=== PATIENT | female | born 1995 | race Caucasian/White ===

== ENCOUNTER 2018-07-10 10:42 | Outpatient (CLI) | payer MEDICAID, SELFPAY ==
[2018-07-10 13:09] LABS: Anion Gap 9.6 mmol/L (3-11); BUN 8 mg/dL (7-18); CO2 26.4 mmol/L (21.0-32.0); CREATININE 0.63 mg/dL (0.55-1.02); Calcium 8.6 mg/dL (8.5-10.1); Chloride 104 mmol/L (98-107); Glucose 81 mg/dL (70-100); Magnesium 1.7 mg/dL (1.8-2.4); Potassium 4.3 mmol/L (3.5-5.1); Sodium 140 mmol/L (136-145); TSH (W/Ref FT4) 1.41 uIU/mL (0.358-3.74)
== END 2018-07-10 11:02 ==
PROVIDERS: PCP Nurse Practitioner Gerontology; Visit Provider Nurse Practitioner Family
DX: R00.2 Palpitations (principal)
CPT/HCPCS: 36415; 80048; 83735; 84443

== ENCOUNTER 2018-07-14 02:50 | Outpatient (CLI) | payer MEDICAID, SELFPAY | END 2018-07-14 03:10 | PROVIDERS: PCP Nurse Practitioner Family; Visit Provider Nurse Practitioner Family | DX: R00.2 Palpitations (principal); I49.8 Other specified cardiac arrhythmias | CPT/HCPCS: 93225 ==

== ENCOUNTER 2018-07-17 08:07 | Outpatient (REF) | payer MEDICAID, SELFPAY ==
--- NOTE | 2018-07-17 15:25 | W.HOLTRPT ---
Holter Monitor Report Holter Monitor Note: Holter monitor report Date of service: July 14, 2018 Date of analysis: July 17, 2018 Referred by: Chelsea Stokes NP Indication: Palpitations Findings: 1. Baseline sinus rhythm, 51-129/min, average 76/min. Significant sinus arrhythmia. 2. Rare PAC, 9/2 days, no SVT, no AF. 3. Rare PVC, 28/2 days, no VT. 4. No significant pauses. 5. Symptoms: Flutter times 5 minutes, sinus rhythm, 95/min, 1 PVC. Flutter off and on, sinus rhythm, 66/min, no arrhythmia.
== END 2018-07-17 08:27 ==
LOC: RT 08:07
PROVIDERS: PCP Nurse Practitioner Family; Visit Provider Nurse Practitioner Family
DX: R00.2 Palpitations (principal); I49.1 Atrial premature depolarization; I49.3 Ventricular premature depolarization
CPT/HCPCS: 93226

== ENCOUNTER 2018-09-22 08:44 | Outpatient (CLI) | payer MEDICAID, SELFPAY ==
[2018-09-22 11:41] LABS: Magnesium 1.8 mg/dL (1.8-2.4)
== END 2018-09-22 09:04 ==
PROVIDERS: PCP Nurse Practitioner Family; Visit Provider Nurse Practitioner Family
DX: R00.2 Palpitations (principal); E83.42 Hypomagnesemia
CPT/HCPCS: 36415; 83735

== ENCOUNTER 2019-07-29 20:24 | Emergency (ER) | payer MEDICAID, SELFPAY ==
[2019-07-29 20:26] VITALS: BP 139/82; PULSE 122; RESP 16; TEMP 37.1; O2SAT 99
--- NOTE | 2019-07-29 20:27 | W.ED.GENAD ---
Discharge Plan Disposition Patient Disposition: HOME Condition: Good Discharge Details Chief Complaint: Sorethroat Clinical Impression: Viral syndrome Primary Care Provider: Chelsea Stokes ED Provider: Preet Aguilar Meds and New Rx's Prescriptions: Continued NuvaRing 0.12-0.015 mg/24 hr ring 1 vag ring VG Q4W RF: 0 lorazepam 0.5 mg tablet 0.5 mg PO DAILY MDD .5mg PRN (Reason: anxiety) Qty: 10 RF: 0 sertraline 100 mg tablet 100 mg PO DAILY Qty: 90 RF: 3 naproxen 500 mg tablet 500 mg PO BID PRN (Reason: pain) Qty: 20 RF: 0 Discharge Instructions Instructions: Viral Syndrome (ED) Additional Instructions: Suspect this is all just a viral illness. Strep culture has been sent. Monospot is negative. Recommend rest, hydration, acetaminophen or ibuprofen as needed for discomfort. Follow-up with primary care next week if not doing any better. Return to ED for severe headache, mental status changes, difficulty breathing, inability to swallow, chest pain, vomiting, other concerns or problems. Referrals: Chelsea Stokes, OVERHEAD DISTRIBUTION ENGINEER [Primary Care Provider] - Medical Decision Making Patient presenting with viral-like symptoms. No fever that she is aware of. Looks well here but does have tachycardia. Denies nausea vomiting and reports eating and drinking normally. Afebrile here. Lungs are clear. Rapid strep is negative. Cannot really explain the tachycardia so we will place IV and give a liter of fluids. Will check CBC, BMP and Monospot. Suspect this is all just a viral. I do not suspect meningitis and I do not think she needs imaging or LP. Patient laboratory studies are fine. WBC is normal with no atypical lymphs. Monospot negative. Chemistries normal. Patient's heart rate down to 100 with just over half a liter in. Will finish the liter and and plan discharge. Patient to rest, stay hydrated, continue acetaminophen or ibuprofen as needed for discomfort. Follow-up with primary care next week if not doing better. Return to ED for severe headache, mental status changes, lethargy, difficulty breathing, inability to swallow, vomiting, other concerns or problems. Medical Records Medical records reviewed: Yes I reviewed the patient's medical records. HPI General Mode of arrival: ambulatory. Date/Time Provider Initiated Documentation: 07/29/19 20:25. Limitations to Documentation: no limitations. Information obtained by: patient, RN notes reviewed and old records reviewed. HPI Narrative: Patient presents to ED with complaint of sore throat, fatigue, body aches, intermittent headache. Fatigue started about a week ago. Body aches and headaches over the weekend. Headache is mostly right-sided. Relieved by Tylenol but comes back. Has history of headaches but not for some time and typically does not last days. Developed sore throat in the last 24 to 36 hours. Denies any fever that she is aware of. Denies rash. Denies cough or shortness of breath. Occasional nausea but no vomiting or diarrhea. No chest pain or abdominal pain. Was seen by PCP this morning but that note reflects complaint of headache only. She was prescribed naproxen. Related Data Home Medications Medication Instructions Recorded Confirmed etonogestrel-ethinyl estradiol 1 vag ring VG Q4W 07/21/19 07/29/19 0.12 mg -0.015 mg/24 hr vaginal ring lorazepam 0.5 mg tablet 0.5 mg PO DAILY PRN #10 tab MDD 07/21/19 07/29/19 .5mg naproxen 500 mg tablet 500 mg PO BID PRN #20 tab 07/29/19 07/29/19 sertraline 100 mg tablet 100 mg PO DAILY #90 tab 07/29/19 07/29/19 Previous Rx's Medication Instructions Recorded lorazepam 0.5 mg tablet 0.5 mg PO DAILY PRN #10 tab MDD 07/21/19 .5mg naproxen 500 mg tablet 500 mg PO BID PRN #20 tab 07/29/19 sertraline 100 mg tablet 100 mg PO DAILY #90 tab 07/29/19 Allergies Allergy/AdvReac Type Severity Reaction Status Date / Time Penicillins Allergy Verified 07/29/19 20:31 Sulfa (Sulfonamide Allergy hives Verified 07/29/19 20:31 Antibiotics) amoxicillin AdvReac Intermediate welts on Verified 07/29/19 20:31 legs Review of Systems Review of Systems Narrative: As documented in HPI otherwise negative as below. Const: no fever, chills, weakness Resp: no cough, SOB, pleuritic pain CV: no CP, diaphoresis, edema, syncope GI: nausea; no abdominal pain, vomiting, diarrhea Neuro: headache; no numbness, focal weakness, confusion PFSH Medical History Generalized anxiety disorder (Chronic) Migraine headache with aura (Chronic) Family History Mother Mental disorder depression -taking Wellbutrin Asthma Father No problems noted. Brother Essential hypertension Grandfather Heart disease Myocardial infarction Stroke COPD (chronic obstructive pulmonary disease) Grandfather Stroke Grandmother Essential hypertension Grandmother No problems noted. Social History Smoking/Tobacco Use Status: Never Alcohol Intake: never Drug use: Never Substance use type: does not use Do you feel safe in your relationship?: Yes Exam Narrative Exam Narrative: Vitals: Afebrile. Tachycardic but otherwise vital signs normal with normal room air pulse oximetry. Const: WDWN female in NAD. HEENT: NC/AT. Normal facial exam. TMs clear. OP with tonsil erythema but otherwise normal. Eyes: Normal conjunctiva and sclera. Neck: Supple. Trachea midline. No adenopathy. No meningeal signs. Lungs: Normal respiratory effort. Lungs are clear. Cor: RRR without murmur/gallop. Tachy. Good radial pulses. GI: Soft. NT/ND. No guarding or rebound. No HSM. Neuro: A+O x 3. Cranial nerves II through XII intact. Speech, mental status, strength, sensation, gait all normal. Ext: No C/C/E. Skin: Warm and dry without rash.
[2019-07-29] MEDS: Lactated Ringers 1,000 ML 1000 ML IV (21:15)
[2019-07-29 21:18] LABS: Absolute Basophil Count 0.02 k/cumm (0.0-0.2); Absolute Eosinophil Count 0.04 k/cumm (0.0-0.7); Absolute Lymphocyte Count 0.81 k/cumm (1.2-3.4); Absolute Neutrophil Count 3.39 k/cumm (1.2-6.7); Basophils % 0.4; Eosinophils % 0.9; HCT 41.6 % (36.0-46.0); HGB 14.2 g/dL (12.0-15.5); Lymphocytes % 17.4; Mean Corp. HGB Concentration 34.1 g/dL (32.0-36.0); Mean Corpuscular Hemoglobin 29.3 pg (27.0-33.0); Mean Corpuscular Volume 85.8 fL (80-95); Mean Platelet Volume 11.1 fL (8.0-11.0); Monocytes % 8.6; Neutrophils % 72.7; Platelet Count 150 x1000/uL (130-400); RBC 4.85 m/cumm (4.00-5.20); RBC Distribution Width 12.5 % (11.7-14.6); White Blood Cell Count 4.66 k/cumm (4.4-10.8)
[2019-07-29 21:25] LABS: Anion Gap 9.7 mmol/L (3-11); BUN 8 mg/dL (7-18); CO2 28.3 mmol/L (21.0-32.0); CREATININE 0.77 mg/dL (0.55-1.02); Calcium 9.2 mg/dL (8.5-10.1); Chloride 100 mmol/L (98-107); Glucose 130 mg/dL (70-100); Potassium 3.7 mmol/L (3.5-5.1); Sodium 138 mmol/L (136-145)
[2019-07-29 21:36] LABS: Mono Screening Negative (Negative)
[2019-07-29 22:05] VITALS: BP 110/62; PULSE 90; RESP 16; TEMP 36.6; O2SAT 99
== END 2019-07-29 22:08 | disposition home or self-care (01) ==
PROVIDERS: Emergency Provider Emergency Medicine; PCP Nurse Practitioner Family
DX: B34.9 Viral infection, unspecified (principal)
CPT/HCPCS: 36415; 80048; 87880; 96360; 99283; 85025; 86308; 87081

== ENCOUNTER 2020-06-27 21:47 | Outpatient (REF) | payer MEDICAID, SELFPAY ==
[2020-06-27 21:33] LABS: FREE T4 1.01 ng/dL (0.76-1.46); TSH 1.33 uIU/mL (0.36-3.74)
== END 2020-06-27 22:07 ==
LOC: LBN 21:47
PROVIDERS: PCP Nurse Practitioner Family; Visit Provider Nurse Practitioner Family
DX: F32.9 Major depressive disorder, single episode, unspecified (principal)
CPT/HCPCS: 84439; 84443

== ENCOUNTER 2021-07-07 13:43 | Outpatient (CLI) | payer MEDICAID, SELFPAY ==
[2021-07-07 13:59] LABS: Abs Immature Grans 0.01 10^3/uL (0.0-0.06); Absolute Basophil Count 0.04 10^3/uL (0.0-0.2); Absolute Eosinophil Count 0.08 10^3/uL (0.0-0.7); Absolute Lymphocyte Count 1.78 10^3/uL (1.2-3.4); Absolute Monocyte Count 0.39 10^3/uL (0.1-0.8); Absolute Neutrophil Count 4.84 10^3/uL (1.2-6.7); Basophils % 0.6; Eosinophils % 1.1; HCT 40.8 % (36.0-46.0); HGB 13.8 g/dL (11.2-15.7); Immature Grans % 0.1; Lymphocytes % 24.9; MCH 29.5 pg (27.0-33.0); MCHC 33.8 % (32.0-36.0); MCV 87.2 fL (80-95); MPV 11.3 fL (8.0-11.0); Monocytes % 5.5; Neutrophils % 67.8; Nucleated RBC 0 %; Platelet Count 193 10^3/uL (130-400); RBC 4.68 10^6/uL (3.93-5.22); RDW 11.9 % (11.7-14.6); RDW-SD 37.7 fL; WBC 7.14 10^3/uL (4.4-10.8)
[2021-07-07 15:25] LABS: ALT 25 U/L (14-59); AST 12 U/L (15-37); Albumin 4.4 g/dL (3.4-5.0); Alkaline Phosphatase 73 U/L (46-116); Anion Gap 6.6 mmol/L (3-11); BUN 11 mg/dL (7-18); Bilirubin, Total 1.7 mg/dL (0.2-1.0); CO2 30.4 mmol/L (21.0-32.0); CREATININE 0.8 mg/dL (0.55-1.02); Calcium 9.1 mg/dL (8.5-10.1); Chloride 105 mmol/L (98-107); Glucose 82 mg/dL (74-106); Sodium 142 mmol/L (136-145); T4 7.8 ug/mL (4.7-13.3); TSH 0.99 uIU/mL (0.36-3.74); Total Protein 7.7 g/dL (6.4-8.2); Vitamin B12 364 pg/mL (193-986)
== END 2021-07-07 13:44 | disposition home or self-care (01) ==
LOC: LBO 13:44
PROVIDERS: PCP Nurse Practitioner Family; Visit Provider Nurse Practitioner Family
DX: G43.109 Migraine with aura, not intractable, without status migrainosus (principal)
CPT/HCPCS: 36415; 80053; 82607; 84436; 84443; 85025

== ENCOUNTER 2023-03-08 14:45 | Outpatient (REF) | payer MEDICAID, SELFPAY ==
[2023-03-08 15:32] LABS: HCT 39.1 % (36.0-46.0); HGB 13.3 g/dL (11.2-15.7); MCH 29.3 pg (27.0-33.0); MCV 86 fL (80-95); Platelet Count 220 10^3/uL (130-400); RBC 4.54 10^6/uL (3.93-5.22); RDW 11.9 % (11.7-14.6); RDW-SD 37.8 fL; WBC 7.76 10^3/uL (4.4-10.8)
[2023-03-08 16:38] LABS: TSH (W/Ref FT4) 1.19 uIU/mL (0.36-3.74)
[2023-03-08 16:52] LABS: Vitamin D 25 Total 16.7 ng/mL (30-100)
== END 2023-03-08 14:46 | disposition home or self-care (01) ==
LOC: NCHCN 14:45
PROVIDERS: PCP Nurse Practitioner Family; Visit Provider Nurse Practitioner Family
DX: R63.5 Abnormal weight gain (principal); R53.83 Other fatigue; F41.8 Other specified anxiety disorders; E55.9 Vitamin D deficiency, unspecified
CPT/HCPCS: 82306; 85027; 84443

== ENCOUNTER 2023-10-27 11:04 | Emergency (ER) | payer MEDICAID, SELFPAY ==
[2023-10-27] VITALS (23 sets, daily range): BP systolic 109–146; BP diastolic 62–98; PULSE 83–105; RESP 13–16; TEMP 36.9; O2SAT 92–100
--- NOTE | 2023-10-27 11:00 | DI.US_ITS ---
Exam(s) US OB TRANSVAGINAL EXAM: US OB TRANSVAGINAL INDICATION: Vaginal bleeding . COMPARISON: US POCUS EXAM from 10/27/2023 TECHNIQUE: Transvaginal pelvic ultrasound performed FINDINGS: Uterus: Uterus size is normal, measuring 8.3 cm length by 3.8 cm AP x 4.9 cm wide. There are no uterine fibr oids evident. There is no evidence of intrauterine gestational sac. The endometrial thickness is 11 mm. There is no fluid in the endometrial canal. No abnormal findings in the lower uterine segment. There is trac e fluid in the endocervical canal. Small amount of fluid is noted in the cul-de-sac. Ovaries: Right ovary measures 2.7 x 2.5 x 1.6 cm and left ovary measures 4.1 x 2.4 x 1.6 cm. Both ov radha appear age-appropriate/unremarkable. Vascular flow was demonstrated within both ovaries. Ther e no extraovarian adnexal masses evident on these images. IMPRESSION: No evidence of intrauterine gestation. Endometrium appears age-appropriate. There is trace fluid in the endocervical canal. Normal appearing ovaries. No obvious extraovarian adnexal masses. There is a tiny amount of free fluid in the cul-de-sac.
--- NOTE | 2023-10-27 11:10 | W.ED.GENAD ---
HPI General JENY: 4 Date/Time Provider Initiated Documentation: 10/27/23 11:07. HPI Narrative: MDM This is a mildly tachycardic but normotensive and normothermic 28-year-old at 6 and half weeks with vaginal bleeding and cramping concerning for the possibility of ectopic for which patient will undergo formal radiology ultrasound. She had no definitive intrauterine on limited bedside transabdominal pelvic ultrasound. She had a negative abdominal FAST exam reassuring against ruptured ectopic. Will send quantitative hCG along with type and screen to assess for need for RhoGAM plus CBC and basic labs. No history of falling to suggest benefit from kleihauer betke test. No pain or proportion to suggest necrotizing soft tissue infection. Soft nontender abdomen so I doubt appendicitis diverticulitis. No dysuria no frequency so doubt UTI. No chest pain to doubt PE. 12:20 PM CBC lacks anemia thrombocytopenia and leukocytosis. Comprehensive metabolic panel showing very mild hyperbilirubinemia improved compared to prior dated 3 years ago. No MARCY. No LFT abnormalities. Quantitative hCG at 235. 1:34 PM Patient has blood type O+ so no indication for RhoGAM as patient is not Rh-. Ultrasound is here to perform transvaginal ultrasound. 3:26 PM Transvaginal ultrasound on preliminary report shows no definitive intrauterine gestational sac. Will page OB in the setting of of unknown origin. 3:30 PM I spoke with Dr. Farley from OB. She reviewed the patient's case with me. She reported that she would help to arrange close office follow-up later this week. She will have the office call the patient tomorrow to arrange for a repeat hCG and repeat exam in 2 days. Will give patient strict return indications including any syncope bleeding more than 1 pad per hour or any significant abdominal pain. I meet with patient and her partner to explain ED evaluation,next steps and return indication. All questions were answered. Chronic conditions affecting the care of the patient: N/A History obtained from an outside historian: N/A External record review: N/A Medications: N/A Social determinants of health affecting disposition: N/A Management discussed with: OB, Dr. Farley Treatment/interventions considered: N/A Response to therapies provided: N/A HPI This is a 28-year-old at 6 and half weeks presenting to the emergency department in the setting of vaginal bleeding. Patient reports that she previously delivered in [place] and is planning on going to [place] and has an appointment on 11/07/2023. She started some pink spotting 2 days ago and she started having darker and heavier bleeding. Bleeding less than 1 pad per hour. She is intermittently had some cramping. No falls. She takes no medications beyond vitamins. She has no history of clotting disorders. She is not having any dysuria no frequency. No syncope. No chest pain. No shortness of breath. Patient denies routine tobacco, ethanol, and illicits. Exam General: Well-appearing in no acute distress speaking in complete sentences. Head: Normocephalic, atraumatic. Eye: Extraocular eye movements intact. No conjunctival injection. No scleral icterus. Ear, nose, mouth, throat: Grossly normal inspection. Normal voice, handling secretions normally. Neck: Trachea midline. Cardiovascular: Well-perfused distal extremities. Respiratory: Nonlabored respiration. Gastrointestinal: Nondistended abdomen. Soft nontender. Musculoskeletal: No edema. Moving all 4 extremities spontaneously. Skin: Normal for age and race, grossly normal temperature and turgor. No acute rash. Neurologic: Alert and appropriate, no apparent acute deficits. Psychiatric: Mood and manner are appropriate. Grooming and personal hygiene are appropriate. Related Data Home Medications Medication Instructions Recorded Confirmed norethindrone 1 mg-ethinyl 1 tab PO DAILY 06/27/20 08/18/20 estradiol 20 mcg (24)-iron 75 mg (4) tablet (Alia 24 Fe) lorazepam 1 mg tablet 1 mg PO DAILY PRN 08/15/22 sertraline 50 mg tablet 50 mg PO DAILY 08/15/22 Allergies Allergy/AdvReac Type Severity Reaction Status Date / Time pineapple Allergy Severe Verified 08/15/22 10:41 Penicillins Allergy Verified 08/18/20 13:01 Sulfa (Sulfonamide Allergy hives Verified 08/18/20 13:01 Antibiotics) amoxicillin AdvReac Intermediate welts on Verified 08/18/20 13:01 legs PFSH All Active Problems (Updated 10/27/23 @ 15:37 by Leydi Farley MD) Threatened (Acute) Vaginal bleeding (Acute) Elevated serum hCG (Acute) Contraceptive surveillance (Chronic) Major depressive disorder (Chronic) Generalized anxiety disorder (Chronic) Migraine headache with aura (Chronic) Surgical History No significant past surgical history Family History Mother Asthma Depression Father No problems noted. Brother Hypertension Hyperlipidemia Daughter No problems noted. Maternal Grandfather , At 63 Hypertension COPD (chronic obstructive pulmonary disease) Heart disease Myocardial infarction Hyperlipidemia Maternal Grandmother Hypertension Hyperlipidemia Paternal Grandfather Hyperlipidemia Stroke Paternal Grandmother ALS (amyotrophic lateral sclerosis) Social History Smoking/Tobacco Use Status: Never Second Hand Exposure: Yes Smoking risk assessment performed?: Yes Alcohol Intake: current Alcohol Intake frequency: holidays/special occasions only Drug use: Never Substance use type: does not use Caregiver/Support person: No Household members: family and children Housing: house Communication Needs: None Do you need help understanding health information?: Never Pets and animals: Yes Pets and animals: cat(s) Sexually active: Yes Do you think of yourself as: straight/heterosexual Current gender identity: female What is your relationship status?: never How often do you talk on the phone with friends or family?: never How often do you get together with friends or relatives?: twice per week How often do you attend amish or oriental orthodox services?: 1-3 times per year Do you belong to any clubs or organized social groups?: no Panel score (0-1 are the most socially isolated patients): 0 What type of physical activity do you participate in: decline to answer Duration: decline to answer Frequency: decline to answer Margarita/Anglican: No preference Special margarita needs: No Seatbelt use: always Helmet use: No Drive intox or ride w/intox parts driver: No Do you feel safe at home: Yes Do you feel safe in your relationship?: Yes History History 1 Para 1 Hx # Term Pregnancies Multiple births Hx # Pregnancies Ectopic pregnancies AB induced Hx Number of Living Children 1 AB spontaneous Medical Decision Making Quality:SDOH Health Related Social Needs: No Data to Display Discharge Plan Disposition Patient Disposition: Home Discharge Details Clinical Impression: Elevated serum hCG, Vaginal bleeding Primary Care Provider: Jesenia Snyder ED Provider: Reynold Fields Home Meds and New Rx's Prescriptions: Continued norethindrone-e.estradiol-iron [Alia 24 Fe] 1 mg-20 mcg (24)/75 mg (4) tablet 1 tab PO DAILY lorazepam 1 mg tablet 1 mg PO DAILY PRN sertraline 50 mg tablet 50 mg PO DAILY Discharge Instructions Additional Instructions: You were seen in the emergency department for your vaginal bleeding. Your ultrasound did not clearly show a in your uterus and did not clearly show an abnormal . You will follow-up with the ROLLING DOWN MACHINE OPERATOR team in the next 48 hours for reassessment. As we discussed if you pass out if you develop vaginal bleeding or worsening pain please return to the emergency department. Concerning her vaginal bleeding if you are using more than 1 pad per hour please return to the emergency department. Referrals: Leydi Farley MD [ [facility] STAFF PHYSICIAN] - Discharge Data Discharge Date/Time-TO BE ENTERED AT DEPARTURE: 10/27/23 15:46 POCUS Exam (ED) FAST Exam DATE OF EXAM: 10/27/23 TIME OF EXAM: 11:47 PROVIDER THAT PERFORMED THE STUDY: Reynold Fields REASON FOR EXAM: Abdominal pain VISUALIZED STRUCTURES: Hepatorenal space, Pelvis and Perisplenic space PERTINENT FINDINGS/IMPRESSION: no apparent free fluid INCIDENTAL FINDINGS: Limited FAST exam showing no free intra-abdominal fluid. Cardiac use deferred Limited Transthoracic Exam: Exam complete (Transthoracic views not obtained) Limited Chest Exam: Exam complete (Transthoracic views not obtained) Limited Abdominal Exam: Exam complete Limited Retroperitoneal Exam: Exam complete Limited Pelvic Exam DATE OF EXAM: 10/27/23 TIME OF EXAM: 11:45 PROVIDER THAT PERFORMED THE STUDY: Reynold Fields IS THIS A REPEAT EXAM DURING THIS ENCOUNTER: No Type of Exam: Pelvic Trans Abdominal Exam REASON FOR EXAM: Vaginal Bleeding VISUALIZED STRUCTURES: Uterus PERTINENT FINDINGS/IMPRESSION: Other impression: no definitive IUP Exam Complete
[2023-10-27 11:45] LABS: Abs Immature Grans 0.01 10^3/uL (0.0-0.06); Absolute Basophil Count 0.02 10^3/uL (0.0-0.2); Absolute Lymphocyte Count 1.08 10^3/uL (1.2-3.4); Absolute Monocyte Count 0.28 10^3/uL (0.1-0.8); Basophils % 0.4; HCT 40.5 % (36.0-46.0); HGB 13.7 g/dL (11.2-15.7); Immature Grans % 0.2; MCH 29.1 pg (27.0-33.0); MCHC 33.8 % (32.0-36.0); MCV 86 fL (80-95); MPV 10.3 fL (8.0-11.0); Neutrophils % 70.4; Platelet Count 190 10^3/uL (130-400); RDW-SD 38.2 fL; WBC 4.69 10^3/uL (4.4-10.8)
[2023-10-27] MEDS: Normal Saline 1,000 ML 1000 ML IV (12:00)
[2023-10-27 12:10] LABS: ALT 22 U/L (14-59); AST 16 U/L (15-37); Alkaline Phosphatase 63 U/L (46-116); Anion Gap 7.2 mmol/L (3-11); BUN 7 mg/dL (7-18); Bilirubin, Total 1.1 mg/dL (0.2-1.0); CO2 27.8 mmol/L (21.0-32.0); CREATININE 0.8 mg/dL (0.55-1.02); Calcium 8.9 mg/dL (8.5-10.1); Chloride 104 mmol/L (98-107); Glucose 91 mg/dL (74-106); HCG Quant, Pregnancy 235 mIU/mL (1-3); Potassium 3.8 mmol/L (3.5-5.1); Sodium 139 mmol/L (136-145); Total Protein 7.4 g/dL (6.4-8.2)
--- NOTE | 2023-10-27 14:50 | DI.VRAD_ITS ---
PROCEDURE INFORMATION: Exam: US , Transvaginal Exam date and time: 10/27/2023 1:33 PM Age: 28 years old Clinical indication: Lmp or gestational age (in weeks): 09/14/2023; Other: Vaginal bleeding/spotting since Saturday10/25/2023; Patient HX: Beta hcg of 235 this afternoon; Additional info: A gestational sac was not visualized TECHNIQUE: Imaging protocol: Real-time transvaginal obstetrical ultrasound of the maternal pelvis with image documentation. Transvaginal imaging was used for better evaluation of the fetus, adnexa, and/or cervix. COMPARISON: No relevant prior studies available. FINDINGS: Uterus: Overall uterine size is approximately 8.3 x 3.8 x 5 cm. Endometrial stripe measures approximately 10 mm, which is within normal limits. No intrauterine gestational sac is identified. Intraperitoneal space: There is very minimal free fluid in the cul-de-sac. No pathologic adnexal mass detected. Right ovary: Normal size. Blood flow confirmed within the right ovary utilizing color flow imaging and Doppler. Left ovary: Normal size. Blood flow confirmed within the left ovary utilizing color flow imaging and Doppler. IMPRESSION: Essentially unremarkable transvaginal ultrasound exam. cannot be confirmed by ultrasound at this time. Dictated and Authenticated by: Mario Reynolds MD. Ordering:JOANA Flaherty MD
== END 2023-10-27 15:46 | disposition home or self-care (01) ==
PROVIDERS: Emergency Provider Emergency Medicine; PCP Nurse Practitioner Family
DX: O20.9 Hemorrhage in early pregnancy, unspecified (principal); Z3A.01 Less than 8 weeks gestation of pregnancy
CPT/HCPCS: 76604; 76705; 76857; 80053; 86850; 86900; 86901; 96360; 99284; 76817; 84702; 85025

== ENCOUNTER 2023-10-29 04:46 | Outpatient (CLI) | payer MEDICAID, SELFPAY ==
[2023-10-29 13:29] LABS: HCG Quant, Pregnancy 71 mIU/mL (1-3)
== END 2023-10-29 04:47 | disposition home or self-care (01) ==
LOC: LBO 04:47
PROVIDERS: PCP Nurse Practitioner Family; Visit Provider Obstetrics & Gynecology Gynecology
DX: O20.0 Threatened abortion (principal)
CPT/HCPCS: 36415; 84702

== ENCOUNTER 2023-11-06 03:05 | Outpatient (CLI) | payer MEDICAID, SELFPAY ==
[2023-11-06 15:40] LABS: HCG Quant, Pregnancy 3 mIU/mL (1-3)
== END 2023-11-06 03:06 | disposition home or self-care (01) ==
LOC: LBO 03:06
PROVIDERS: PCP Nurse Practitioner Family; Visit Provider Obstetrics & Gynecology Gynecology
DX: O03.9 Complete or unspecified spontaneous abortion without complication (principal)
CPT/HCPCS: 36415; 84702

== ENCOUNTER 2023-11-29 02:36 | Outpatient (CLI) | payer MEDICAID, SELFPAY ==
[2023-11-29 16:13] LABS: HCG Quant, Pregnancy 710 mIU/mL (1-3)
== END 2023-11-29 02:37 | disposition home or self-care (01) ==
PROVIDERS: Obstetrics & Gynecology Gynecology; PCP Nurse Practitioner Family; Visit Provider Nurse Practitioner Family
DX: O03.9 Complete or unspecified spontaneous abortion without complication (principal)
CPT/HCPCS: 36415; 84702

== ENCOUNTER 2023-12-04 14:14 | Outpatient (CLI) | payer MEDICAID, SELFPAY ==
[2023-12-04 14:33] LABS: HCG Quant, Pregnancy 5731 mIU/mL (1-3)
== END 2023-12-04 14:15 | disposition home or self-care (01) ==
LOC: LBO 14:15
PROVIDERS: PCP Nurse Practitioner Family; Visit Provider Obstetrics & Gynecology
DX: Z34.92 Encounter for supervision of normal pregnancy, unspecified, second trimester (principal)
CPT/HCPCS: 36415; 84702

== ENCOUNTER 2024-01-16 04:51 | Outpatient (CLI) | payer MEDICAID, SELFPAY ==
[2024-01-16 15:22] LABS: Glucose,1 Hr (Glucola) 71 mg/dL (80-140)
[2024-01-16 15:29] LABS: Panorama Kit Sent via Fed Ex
[2024-01-16 15:41] LABS: Abs Immature Grans 0.03 10^3/uL (0.0-0.06); Absolute Basophil Count 0.03 10^3/uL (0.0-0.2); Absolute Lymphocyte Count 1.08 10^3/uL (1.2-3.4); Absolute Neutrophil Count 8.15 10^3/uL (1.2-6.7); Basophils % 0.3; Immature Grans % 0.3; MCHC 34.2 % (32.0-36.0); MCV 88 fL (80-95); Monocytes % 5.1; Neutrophils % 83.3; Platelet Count 188 10^3/uL (130-400); RBC 4.33 10^6/uL (3.93-5.22); RDW 12.3 % (11.7-14.6); RDW-SD 39.8 fL; WBC 9.79 10^3/uL (4.4-10.8)
[2024-01-17 08:05] LABS: Hepatitis B Surface Ag Negative (Negative)
[2024-01-17 08:43] LABS: Hepatitis C Ab w Rflx HCV PCR Negative (Negative)
[2024-01-17 09:11] LABS: HIV-1/2 Ag & Ab Screen Negative (Negative)
[2024-01-17 11:23] LABS: Varicella IgG Antibody Positive (See Note)
[2024-01-17 11:30] LABS: Rubella IgG Ab (UVM) Positive (See Note)
[2024-01-19 14:31] LABS: Syphilis IgG w/Reflex Nonreactive (Nonreactive)
== END 2024-01-16 04:52 | disposition home or self-care (01) ==
LOC: LBO 04:51
PROVIDERS: PCP Nurse Practitioner Family; Visit Provider Advanced Practice Midwife
DX: Z34.91 Encounter for supervision of normal pregnancy, unspecified, first trimester (principal)
CPT/HCPCS: 36415; 82950; 86787; 86803; 86850; 86900; 86901; 87340; 87389; 85025; 86762; 86780

== ENCOUNTER 2024-01-16 15:57 | Outpatient (REF) | payer MEDICAID, SELFPAY ==
--- NOTE | 2024-01-16 14:00 | PAPFT_PTH ---
PATIENT: Cyn Mendoza LOC: [facility] U#:[id number] AGE/SX: 28/F ROOM: RE01/16/[address]: Michelle Roe CNM : 1995 BED: DIS: 01/16/2024 SPEC #: [id number] RECD: 01/16/24 17:28 STATUS: GINNY REWaldo #: [id number] CRAMELA: 01/16/24 14:[address]: Michelle Roe DEPT: [facility] Cytology RECD BY: Bianca Gomez ENTERED: 01/16/24 17:28 SP TYPE: PAPFT OTHR DR: Jseenia Snyder Tissues: 1 - CX/ENDOCX FOR PAP SMEARS Procedures: PAP THIN PREP/UVM Screening Comments: [id number] (CHLAMYDIA/GC)
[2024-01-17 15:27] LABS: Chlamydia Result Negative (Negative); GC Result Negative (Negative)
== END 2024-01-16 15:58 | disposition home or self-care (01) ==
LOC: LBN 15:57
PROVIDERS: PCP Nurse Practitioner Family; Visit Provider Advanced Practice Midwife
DX: Z34.91 Encounter for supervision of normal pregnancy, unspecified, first trimester (principal)
CPT/HCPCS: 87491; 87591; 88142; 87086

== ENCOUNTER → 2024-03-12 02:58 | Outpatient (CLI) | payer MEDICAID, SELFPAY ==
--- NOTE | 2024-03-12 07:15 | DI.US_ITS ---
Exam(s) US OB 2-3 TRIMESTER W MOD EXAM: US OB 2-3 TRIMESTER W MOD CLINICAL HISTORY: anatomy survey, Z34.91, NORMAL , Z34.90. TECHNIQUE: Transabdominal obstetrical ultrasound performed. COMPARISON: US US OB TRANSVAGINAL from 10/27/2023 FINDINGS: Number of fetuses: 1 position: VARIED heart rate: 144bpm Placental location: There is a grade 1 anterior placenta. The placental tip is 1.4 cm from the inter nal os. No evidence of previa. Amniotic fluid index: Amount of fluid is within normal limits. ANATOMICAL SURVEY: Within normal limits. BIOMETRIC DATA: BPD: 4.49cm, 19weeks 4days HC: 16.62cm, 19weeks 2days AC: 13.63cm, 19weeks 1day FL: 3.17cm, 19weeks 6days Cisterna magna: 3.1mm Cerebellum: 1.75cm Lateral ventricle: 6 mm EFW: 292.42g, 0.64lb, 54.4% Composite Age: 19weeks 3days CINDY: 08/03/2024 Heart Rate: 144bpm ANATOMICAL SURVEY: Four-chambered heart: Unremarkable. RVOT: The right ventricular outflow tract was not ideally visualized and the patient should return fo r repeat images. LVOT: Unremarkable. Left-sided stomach: Unremarkable. urinary bladder: Unremarkable. Bilateral kidneys: Unremarkable. Three-vessel cord: Unremarkable. Cord insertion: Unremarkable. Posterior fossa: Unremarkable. ventricles: Unremarkable. nose/lips: Unremarkable. Palate: Unremarkable. spine: Unremarkable. Two arms and two legs: Unremarkable. IMPRESSION: 1. Single live intrauterine gestation as above. 2. There is a low-lying placenta. The placental tip is 1.4-1.9 cm from the internal os. 3. The right ventricular outflow tract was not ideally visualized and the patient should return for c ompletion of the anatomic survey. 4. Otherwise unremarkable anatomic survey. Unexpected findings DATA REPOSITORY:
== END ==
PROVIDERS: PCP Nurse Practitioner Family; Visit Provider Advanced Practice Midwife
DX: Z34.92 Encounter for supervision of normal pregnancy, unspecified, second trimester (principal); Z3A.19 19 weeks gestation of pregnancy
CPT/HCPCS: 76805

== ENCOUNTER → 2024-03-13 00:11 | Outpatient (CLI) | payer MEDICAID, SELFPAY ==
--- NOTE | 2024-03-13 | DI.US_ITS ---
Exam(s) US OB F/U FACIAL/LVOT/RVOT EXAM: US OB F/U FACIAL/LVOT/RVOT CLINICAL HISTORY: Z34.90 F/U from 03-12-24.limited heart views. COMPARISON: US US OB 2-3 TRIMESTER W MOD from 03/12/2024 TECHNIQUE: Transabdominal obstetrical ultrasound performed. FINDINGS: Sonographic images demonstrate a single intrauterine gestation in transverse position, head toward th e maternal right.. heart rate motion is Dopplered at: 157 bpm. nose/lips: Unremarkable. Placenta: Anterior, grade 1. The placental tip measures 4.3 cm from the internal os on today's exam . Amniotic fluid index: Amount of fluid is visually within normal limits. The right ventricular outflow tract is better seen on today's exam. No abnormality is identified. IMPRESSION: Right ventricular outflow tract appears within normal limits. DATA REPOSITORY:
== END ==
PROVIDERS: PCP Nurse Practitioner Family; Visit Provider Advanced Practice Midwife
DX: Z34.92 Encounter for supervision of normal pregnancy, unspecified, second trimester (principal); Z3A.19 19 weeks gestation of pregnancy
CPT/HCPCS: 76815

== ENCOUNTER 2024-04-29 10:13 | Outpatient (CLI) | payer MEDICAID, SELFPAY ==
[2024-04-29 10:23] VITALS: BP 119/72; PULSE 101; TEMP 36.6
[2024-04-29 10:27] VITALS: BP 119/72; PULSE 101
[2024-04-29 11:17] VITALS: BP 119/72; PULSE 101; TEMP 36.6
[2024-04-30 14:26] LABS: Chlamydia Result Negative (Negative); GC Result Negative (Negative)
[2024-06-22 17:23] VITALS: BP 119/72; PULSE 101; TEMP 36.6
--- NOTE | 2024-06-22 17:23 | W.OBNST ---
Date of service: 04/29/24 Time of Service: 11:30 NST Evaluation Reason for NST Reasons for Nonstress Test: OTHER, SEE COMMENT Reason for NST Other: Not feeling well Gestational Age Gestational Age in Weeks and Days: 26 Weeks and 1Days Test and Monitor Explained Test/Monitor Explained: Test Explained, Monitor Explained and Patient Verbalized Understanding Vital Signs Blood Pressure: 119/72 Pulse: 101 Temperature: 97.9 F Urine Results Urine Protein: Negative Urine Ketones: Negative Urine Glucose: Negative Urine Blood: Negative NST Information Date on Monitor: 04/29/24 Time on Monitor: 10:27 Date off Monitor: 04/29/24 Time off Monitor: 11:06 Total Time on Monitor: 39 NST Interventions: PO Hydration Contraction Frequency: 0 NST Evaluation Patient States Movement: Present FHR Baseline: 145 Variability: Moderate 6-25 bpm Accelerations: 10x10 Decelerations: None NST Results: Reactive Note Ultrasound Done: N/A. NST Note NST Reviewed and Verified by: Michelle Roe
== END 2024-04-29 11:35 ==
LOC: BCD 10:13 → OBS 10:19 → BCD 10:20 → OBS 10:21
PROVIDERS: PCP Nurse Practitioner Family; Visit Provider Advanced Practice Midwife
DX: O26.852 Spotting complicating pregnancy, second trimester (principal); Z3A.26 26 weeks gestation of pregnancy
CPT/HCPCS: 59025; 87491; 87591; 87086; 87480; 87510; 87660

== ENCOUNTER 2024-05-07 02:44 | Outpatient (CLI) | payer MEDICAID, SELFPAY ==
--- OUTSIDE RECORDS SUMMARY | 2024-05-07 02:46 | XMS_ITS | Encounter Summary ---
Author Organization [facility] Address [address] [place] [address] Care Team Providers Care Slp Name Role Phone Unavailable Primary Care Provider Unavailabl e Encounter Details Date Type Department Care Team (Late st Contact Info) Description 01/17/2024 Lab Requisition [facility] Pathology & Laboratory Medicine - [facility] [address] [place] [address] [place], [place] [address] Encounter for supervision of normal , unspecified, unspecified trimester; Encounter for supervision of normal , unspecified, first trimester Social History Tobacco Use Types Packs/Day Years Used Date Smoking Tobacco: Never Sex and Gender Information Value Date Recorded Sex Assigned at Not on file Gender Identity Not on file Sexual Orientation Not on file documented as of this encounter Plan of Treatment Not on file documented as of this encounter Procedures Procedure Name Priority Date/Time Associated Diagnosis Comments PAP TEST Today 01/16/2024 14:00 EDT Encounter for supervision of normal , unspecified, unspecified trimester Encounter for supervision of normal , unspecified, first trimester documented in this encounter Results * PAP TEST (01/16/2024 14:00 EDT) Specimens A. Cervix and/or Endocervix , ThinPrep Imaging System with Manual Evaluation 01/22/2024 15:18 EDT [facility] Specimen Adequacy Satisfactory for Evaluation - transformation zone component absent 01/22/2024 15:18 EDT [facility] General Categorization Negative for intraepithelial lesion or malignancy 01/22/2024 15:18 EDT [facility] Descriptive Diagnosis Fungal organisms present morphologically consistent with Erika species. 01/22/2024 15:18 EDT [facility] Attestation . 01/22/2024 15:18 T [facility] at 1518 Clinical History SEE BELOW 01/22/20 15:18 EDT [facility] Performing Lab [facility] 01/22/2024 15:18 EDT [facility] Scanned Images 01/22/2024 15:18 EDT [facility] Pap Test CERVIX UTERI STRUCTURE / Unknown 01/16/2024 14:00 EDT 01/17/2024 14:55 EDT Michelle Roe CNM PATHOLOGY ORDERABLES [facility] [address] [place] [address] documented in this encounter Visit Diagnoses Diagnosis Encounter for supervision of normal , unspecified, unspecified trimester Encounter for supervision of normal , unspecified, first trimester documented in this encounter
--- OUTSIDE RECORDS SUMMARY | 2024-05-07 02:46 | XMS_ITS | Encounter Summary ---
Author Organization [facility] Address [address] [place] [address] Care Team Providers Care Wood Crafter Name Role Phone Unavailable Primary Care Provider Unavailabl e Encounter Details Date Type Department Care Team (Late st Contact Info) Description 04/29/2024 Lab Requisition [facility] Pathology & Laboratory Medicine - [facility] [address] [place], [place] [id number] Outr Resulting Lab, Provider Social History Tobacco Use Types Packs/Day Years Used Date Smoking Tobacco: Never Sex and Gender Information Value Date Recorded Sex Assigned at Not on file Gender Identity Not on file Sexual Orientation Not on file documented as of this encounter Plan of Treatment Not on file documented as of this encounter Procedures Procedure Name Priority Date/Time Associated Diagnosis Comments CHLAMYDIA/N. GONORRHOEAE AMPLIFIED NUCLEIC ACID Routine 04/29/2024 11:10 EDT documented in this encounter Results * CHLAMYDIA/N. GONORRHOEAE AMPLIFIED NUCLEIC ACID (04/29/2024 11:10 EDT) Neisseria gonorrhoeae Result Negative Negative 04/30/2024 14:21 EDT [facility] Chlamydia trachomatis Result Negative Negative 04/30/2024 14:21 EDT [facility] Swab VAGINAL STRUCTURE / Unknown 04/29/2024 11:10 EDT 04/29/2024 17:43 EDT Provider Outr Resulting Lab MICROBIOLOGY - GENERAL ORDERABLES [facility] [address] [place] [address] documented in this encounter Visit Diagnoses Not on filedocumented in this encounter
--- OUTSIDE RECORDS SUMMARY | 2024-05-07 02:46 | XMS_ITS | Encounter Summary ---
Author Organization [facility] Address [address] [place] [address] Care Team Providers Care Food Stand Manager Name Role Phone Magdaleno Lacey MD Primary Care Provider +1- [phone] Reason for Visit * Reason Comments Abdominal Pain Pt reports epigastri c pain started 15 min ago, denies nausea, 03/23 , pt with mom whom is here visiting room 4 Encounter Details Date Type Department Care Team (Late st Contact Info) Description 07/04/2009 17:02 EDT - 07/04/2009 18:24 EDT Emergency [facility] Emergency Department - [address] [address] Sarthak Solomon MD Emergency, MD Anastasiia Abdominal Pain, Epigastric Discharge Disposition: Home or Self Care Social History Tobacco Use Types Packs/Day Years Used Date Smoking Tobacco: Never Sex and Gender Information Value Date Recorded Sex Assigned at Not on file Gender Identity Not on file Sexual Orientation Not on file documented as of this encounter Last Filed Vital Signs Vital Sign Reading Time Taken Comments Blood Pressure 119/64 07/04/2009 1823 EDT Pulse 66 07/04/2009 1823 EDT Temperature 36.7 ??C (98.1 ??F) 07/04/2009 1718 EDT Respiratory Rate 18 07/04/2009 1823 EDT Oxygen Saturation 100% 07/04/2009 1718 EDT Inhaled Oxygen Concentration - - Weight - - Height - - Body Mass Index - - documented in this encounter Discharge Instructions * Discharge Instructions* Sarthak Solomon MD - 07/04/2009 18:16 EDT Return here sooner if worsening symptoms tonight May eat and drink if you desire * Attachments The following attachments cannot be sent through Care Everywhere. * ABDOMINAL PAIN: AFTER YOUR CHILD'S VISIT ([place]) documented in this encounter Discharge Disposition Disposition Code Departure Means Destination Home or Self Care documented in this encounter ED Notes * Sarthak Solomon MD - 07/04/2009 1821 EDT DOS: 07/04/2009 Chief Complaint Patient presents with ??? Abdominal Pain Pt reports epigastric pain started 15 min ago, denies nausea, 03/23 , pt with mom whom is here visiting room 4 Patient is a 14 y.o. female presenting with abdominal pain. The history is provided by the patient and the mother. Abdominal Pain Episode Onset: 45 minutes ago. The pain is present in the epigastrium. The pain does not radiate. The problem occurs continuously. The problem has not changed since onset. The pain quality is described as sharp. The pain is mild. Nothing relieves the symptoms. Nothing worsens the symptoms. Pertinent negatives include no sore throat, no diarrhea, no fever, no chest pain, no nausea, no congestion, no cough, no vomiting, no headaches, no constipation, no dysuria and no rash. Review of Systems Constitutional: Negative for fever and chills. HENT: Negative for congestion, sore throat and neck stiffness. Eyes: Negative for visual disturbance. Respiratory: Negative for cough and shortness of breath. Cardiovascular: Negative for chest pain. Gastrointestinal: Positive for abdominal pain. Negative for nausea, vomiting, diarrhea and constipation. Genitourinary: Negative for dysuria. Musculoskeletal: Negative for back pain. Skin: Negative for rash. Neurological: Negative for headaches. Psychiatric/Behavioral: Negative for confusion. All other systems reviewed and are negative. History reviewed. No pertinent past medical history. History reviewed. No pertinent past surgical history. No Known Allergies History Substance Use Topics ??? Tobacco Use: Never ??? Alcohol Use: History reviewed. No pertinent family history. BP 123/61 Pulse 86 Temp(Src) 36.7 ??C (98.1 ??F) (Tympanic) Resp 19 SpO2 100% LMP 06/26/2009 Physical Exam Nursing note and vitals reviewed. Constitutional: She appears well-developed and well-nourished. HENT: Head: Normocephalic and atraumatic. Right Ear: External ear normal. Left Ear: External ear normal. Nose: Nose normal. Eyes: Pupils are equal, round, and reactive to light. Right eye exhibits no discharge. Left eye exhibits no discharge. Neck: Normal range of motion. Neck supple. No tracheal deviation present. Cardiovascular: Normal rate, regular rhythm and normal heart sounds. Pulmonary/Chest: Breath sounds normal. No respiratory distress. Abdominal: Soft. Tenderness: mild epigastric. . Musculoskeletal: Normal range of motion. Neurological: She is alert. She has normal strength. No sensory deficit. Skin: No rash noted. Psychiatric: She has a normal mood and affect. Radiology orders: None Procedures Consult orders: None ED Course: MDM Encounter Diagnoses Code Name Primary? Qualifier ??? 789.06 Abdominal Pain, Epigastric PCP: MAGDALENO LACEY MD 07/04/2009 6:21 PM documented in this encounter Miscellaneous Notes * Scanned Note-Null - Inpatient, Physician - 07/09/2009 0726 EDT * Scanned Note-Null - Inpatient, Physician - 07/06/2009 0828 EDT documented in this encounter Plan of Treatment Not on file documented as of this encounter Visit Diagnoses Diagnosis Abdominal pain, epigastric documented in this encounter Administered Medications Inactive Administered Medications - up to 3 most recent administrations Medication Order MAR Action Action Date Dose Rate Site aluminum & magnesium hydroxide-simethicone (MYLANTA-DS) 400-400-40 mg/5 mL suspension 15 mL 15 mL, oral, NOW X1, 1 dose, On Sat07/04/09 at 1845, STAT Given 07/04/2009 18:23 EDT mL aluminum & magnesium hydroxide-simethicone (MYLANTA-DS) 400-400-40 mg/5 mL suspension 1 dose, Starting on 07/04/09 at 1821, Until Sat07/04/09 at 1823 documented in this encounter Active and Recently Administered Medications Times are shown in EDT. Scheduled Medication Order 07/02/2009 07/03/2009 07/04/2009 aluminum & magnesium hydroxide-simethicone (MYLANTA-DS) 400-400-40 mg/5 mL suspension 15 mL (COMPLETED) 15 mL, oral, NOW X1, 1 dose, On Sat07/04/09 at 1845, STAT 1823 (Given - Provid er: Alejandrina Lindsey RN) documented in this encounter Care Teams Food Stand Manager Relationship Specialty Start Date End Date Magdaleno Lacey MD [address] [place] [id number] PCP - General 07/04/09 04/26/21 documented as of this encounter
--- OUTSIDE RECORDS SUMMARY | 2024-05-07 02:46 | XMS_ITS | Encounter Summary ---
Author Organization [facility] Address [address] [place] [address] Care Team Providers Care Surgical Pathologist Name Role Phone Unavailable Primary Care Provider Unavailabl e Encounter Details Date Type Department Care Team (Late st Contact Info) Description 01/16/2024 Lab Requisition [facility] Pathology & Laboratory Medicine - [facility] [address] [place] [address] Outr Resulting Lab, Provider Social History Tobacco Use Types Packs/Day Years Used Date Smoking Tobacco: Never Assessed Sex and Gender Information Value Date Recorded Sex Assigned at Not on file Gender Identity Not on file Sexual Orientation Not on file documented as of this encounter Plan of Treatment Not on file documented as of this encounter Procedures Procedure Name Priority Date/Time Associated Diagnosis Comments RUBELLA IGG ANTIBODY Routine 01/16/2024 15:10 EDT VARICELLA IGG ANTIBODY Routine 01/16/2024 15:10 EDT documented in this encounter Results * VARICELLA IGG ANTIBODY (01/16/2024 15:10 EDT) Varicella IgG Ab Positive See Note 01/17/2024 11:19 EDT [facility] Comment:Presence of detectab le Varicella Zoster virus IgG antibodies. Blood VENOUS BLOOD / Unknown 01/16/2024 15:10 EDT 01/16/2024 20:35 EDT Provider Outr Resulting Lab IMMUNOLOGY A ND SEROLOGY ORDERABLES [facility] [address] [place] [address] * RUBELLA IGG ANTIBODY (01/16/2024 15:10 EDT) Rubella IgG Ab Positive See Note 01/17/2024 11:25 EDT [facility] Comment:Positive for IgG ant ibodies to Rubella virus. Blood VENOUS BLOOD / Unknown 01/16/2024 15:10 EDT 01/16/2024 20:35 EDT Provider Outr Resulting Lab CHEMISTRY & BLOOD GAS ORDERABLES [facility] [address] [place], [place] [address] documented in this encounter Visit Diagnoses Not on filedocumented in this encounter
--- OUTSIDE RECORDS SUMMARY | 2024-05-07 02:46 | XMS_ITS | Encounter Summary ---
Author Organization [facility] Address [address] [place] [address] Care Team Providers Care Full Stack Engineer Name Role Phone Unavailable Primary Care Provider Unavailabl e Encounter Details Date Type Department Care Team (Late st Contact Info) Description 01/16/2024 Lab Requisition [facility] Pathology & Laboratory Medicine - [facility] [address] [place], [place] [id number] Outr Resulting Lab, Provider Social History Tobacco [...] Procedure Name Priority Date/Time Associated Diagnosis Comments HEPATITIS C AB W REFLEX TO HCV RNA BY PCR Routine 01/16/2024 15:10 EDT HEPATITIS B SURFACE ANTIGEN Routine 01/16/2024 15:10 EDT documented in this encounter Results * HEPATITIS B SURFACE ANTIGEN (01/16/2024 15:10 EDT) Hep B Surface Ag Negative Negative 01/17/2024 8:01 EDT [facility] Blood VENOUS BLOOD / Unknown 01/16/2024 15:10 EDT 01/16/2024 20:35 EDT Provider Outr Resulting Lab CHEMISTRY & BLOOD GAS ORDERABLES [facility] [address] [place], [place] [address] * HEPATITIS C AB W REFLEX TO HCV RNA BY PCR (01/16/2024 15:10 EDT) Hep C Antibody Negative Negative 01/17/2024 8:39 EDT [facility] Blood VENOUS BLOOD / Unknown 01/16/2024 15:10 EDT 01/16/2024 20:35 EDT Provider Outr Resulting Lab CHEMISTRY & BLOOD GAS ORDERABLES [facility] [address] [place], [place] [id number] documented in this encounter Visit Diagnoses Not on filedocumented in this encounter
--- OUTSIDE RECORDS SUMMARY | 2024-05-07 02:46 | XMS_ITS | Referral Summary ---
Author Organization [facility] Address [address] [place] [address] Care Team Providers Care Teleservices Representative Name Role Phone Unavailable Primary Care Provider Unavailabl e Encounters Date Type Department Care Team Description 04/29/2024 Lab Requisition [facility] Pathology & Laboratory Medicine - [facility] [address] [place] [address] Outr Resulting Lab, Provider from Last 3 Months Allergies No known active allergies Medications No known medications Social History Tobacco Use Types Packs/Day Years Used Date Smoking Tobacco: Never Sex and Gender Information Value Date Recorded Sex Assigned at Not on file Gender Identity Not on file Sexual Orientation Not on file Last Filed Vital Signs Vital Sign Reading Time Taken Comments Blood Pressure 119/64 07/04/2009 1823 EDT Pulse 66 07/04/2009 1823 EDT Temperature 36.7 ??C (98.1 ??F) 07/04/2009 1718 EDT Respiratory Rate 18 07/04/2009 1823 EDT Oxygen Saturation 100% 07/04/2009 1718 EDT Inhaled Oxygen Concentration - - Weight - - Height - - Body Mass Index - - Plan of Treatment Not on file Procedures Procedure Name Priority Date/Time Associated Diagnosis Comments CHLAMYDIA/N. GONORRHOEAE AMPLIFIED NUCLEIC ACID Routine 04/29/2024 11:10 EDT HEPATITIS C AB W REFLEX TO HCV RNA BY PCR Routine 01/16/2024 15:10 EDT from Last 3 Months or Most Recently Relevant to Health Maintenance Results * CHLAMYDIA/N. GONORRHOEAE AMPLIFIED NUCLEIC ACID (04/29/2024 11:10 EDT) Neisseria gonorrhoeae Result Negative Negative 04/30/2024 14:21 EDT [facility] Chlamydia trachomatis Result Negative Negative 04/30/2024 14:21 EDT [facility] Swab VAGINAL STRUCTURE / Unknown 04/29/2024 11:10 EDT 04/29/2024 17:43 EDT Provider Outr Resulting Lab MICROBIOLOGY - GENERAL ORDERABLES Performing Organization Address City/[facility]/ZIP Co de Phone Number [facility] [address] [place] [address] * HEPATITIS C AB W REFLEX TO HCV RNA BY PCR (01/16/2024 15:10 EDT) Hep C Antibody Negative Negative 01/17/2024 8:39 EDT [facility] Blood VENOUS BLOOD / Unknown 01/16/2024 15:10 EDT 01/16/2024 20:35 EDT Provider Outr Resulting Lab CHEMISTRY & BLOOD GAS ORDERABLES [facility] [address] [place] [address] from Last 3 Months or Most Recently Relevant to Health Maintenance
--- OUTSIDE RECORDS SUMMARY | 2024-05-07 02:46 | XMS_ITS | Clinical Summary ---
Author Organization [facility] Address [address] [place] [address] Care Team Providers Care International Trade Specialist Name Role Phone Unavailable Primary Care Provider Unavailabl e Allergies No known active allergies Medications No known medications Encounters Date Type Department Care Team Description 04/29/2024 Lab Requisition [facility] Pathology & Laboratory Medicine - [facility] [address] [place] [address] Outr Resulting Lab, Provider from Last 3 Months Social History Tobacco Use Types Packs/Day Years Used Date Smoking Tobacco: Never Sex and Gender Information Value Date Recorded Sex Assigned at Not on file Gender Identity Not on file Sexual Orientation Not on file Obstetrics History Last Filed Vital Signs Vital Sign Reading Time Taken Comments Blood Pressure 119/64 07/04/2009 1823 EDT Pulse 66 07/04/2009 1823 EDT Temperature 36.7 ??C (98.1 ??F) 07/04/2009 1718 EDT Respiratory Rate 18 07/04/2009 1823 EDT Oxygen Saturation 100% 07/04/2009 1718 EDT Inhaled Oxygen Concentration - - Weight - - Height - - Body Mass Index - - Plan of Treatment Health Maintenance Due Date Last Done Comments Hepatitis B Vaccine (1 of 3 - 19+ 3-dose series) 05/09 COVID-19 Vaccine ( season) 2023 Hepatitis C Screen Completed 01/16/2024 Procedures Procedure Name Priority Date/Time Associated Diagnosis Comments CHLAMYDIA/N. GONORRHOEAE AMPLIFIED NUCLEIC ACID Routine 04/29/2024 11:10 EDT HEPATITIS C AB W REFLEX TO HCV RNA BY PCR Routine 01/16/2024 15:10 EDT from Last 3 Months or Most Recently Relevant to Health Maintenance Results * CHLAMYDIA/N. GONORRHOEAE AMPLIFIED NUCLEIC ACID (04/29/2024 11:10 EDT) Neisseria gonorrhoeae Result Negative Negative 04/30/2024 14:21 EDT [facility] Chlamydia trachomatis Result Negative Negative 04/30/2024 14:21 EDT [facility] Swab VAGINAL STRUCTURE / Unknown 04/29/2024 11:10 EDT 04/29/2024 17:43 EDT Provider Outr Resulting Lab MICROBIOLOGY - GENERAL ORDERABLES Performing Organization Address City/[facility]/ZIP Co de Phone Number [facility] [address] [place] [address] * HEPATITIS C AB W REFLEX TO HCV RNA BY PCR (01/16/2024 15:10 EDT) Hep C Antibody Negative Negative 01/17/2024 8:39 EDT [facility] Blood VENOUS BLOOD / Unknown 01/16/2024 15:10 EDT 01/16/2024 20:35 EDT Provider Outr Resulting Lab CHEMISTRY & BLOOD GAS ORDERABLES [facility] [address] [place] [address] from Last 3 Months or Most Recently Relevant to Health Maintenance
--- OUTSIDE RECORDS SUMMARY | 2024-05-07 02:46 | XMS_ITS | Encounter Summary ---
Author Organization [facility] Address [address] [place] [address] Care Team Providers Care Nursing Program Chair Name Role Phone Unavailable Primary Care Provider Unavailabl e Encounter Details Date Type Department Care Team (Late st Contact Info) Description 01/16/2024 Lab Requisition [facility] Pathology & Laboratory Medicine - [address] [address] Outr Resulting Lab, Provider Social History Tobacco [...] Associated Diagnosis Comments CHLAMYDIA/N. GONORRHOEAE AMPLIFIED NUCLEIC ACID, THINPREP Today 01/16/2024 14:00 EDT documented in this encounter Results * CHLAMYDIA/N. GONORRHOEAE AMPLIFIED RNA, THINPREP (01/16/2024 14:00 EDT) Neisseria gonorrhoeae Result Negative Negative 01/17/2024 15:21 EDT [facility] Chlamydia trachomatis Result Negative Negative 01/17/2024 15:21 EDT [facility] Pap Test CERVIX UTERI STRUCTURE / Unknown 01/16/2024 14:00 EDT 01/17/2024 9:46 EDT Provider Outr Resulting Lab MICROBIOLOGY - GENERAL ORDERABLES [facility] [address] [place] [address] documented in this encounter Visit Diagnoses Not on filedocumented in this encounter
--- OUTSIDE RECORDS SUMMARY | 2024-05-07 02:46 | XMS_ITS | Encounter Summary ---
Author Organization [facility] Address [address] [place] [address] Care Team Providers Care Painter Airbrush Name Role Phone Unavailable Primary Care Provider Unavailabl e Encounter Details Date Type Department Care Team (Late st Contact Info) Description 01/16/2024 Lab Requisition [facility] Pathology & Laboratory Medicine - [facility] [address] [place], [place] [id number] Outr Resulting Lab, Provider Social History Tobacco [...] Procedure Name Priority Date/Time Associated Diagnosis Comments HIV 1/2 ANTIGEN AND ANTIBODY, 4TH GENERATION Routine 01/16/2024 15:10 EDT documented in this encounter Results * HIV 1/2 ANTIGEN AND ANTIBODY, 4TH GENERATION (01/16/2024 15:10 EDT) HIV 1 and 2 Antibody/p24 Antigen, 4th Generation Negative Negative 01/17/2024 9:05 EDT [facility] Comment:If acute HIV-1 infec tion is suspected in a high risk patient, submit plasma specimen for HIV-1 RNA quantitation test. Blood VENOUS BLOOD / Unknown 01/16/2024 15:10 EDT 01/16/2024 20:35 EDT Narrative [facility] - 01/17/2024 9:05 EDT Fourth Generation assay performed on the Siemens DE Spiritsaur XPT. Provider Outr Resulting Lab IMMUNOLOGY A ND SEROLOGY ORDERABLES [facility] [address] [place] [address] documented in this encounter Visit Diagnoses Not on filedocumented in this encounter
[2024-05-07 10:02] LABS: HCT 36.2 % (36.0-46.0); HGB 12.1 g/dL (11.2-15.7); MCH 29.8 pg (27.0-33.0); MCHC 33.4 % (32.0-36.0); MCV 89 fL (80-95); MPV 11.1 fL (8.0-11.0); Platelet Count 167 10^3/uL (130-400); RBC 4.06 10^6/uL (3.93-5.22); RDW 12.6 % (11.7-14.6); RDW-SD 40.7 fL; WBC 9.52 10^3/uL (4.4-10.8)
[2024-05-07 10:11] LABS: Glucose,1 Hr (Glucola) 86 mg/dL (80-140)
== END 2024-05-07 02:45 | disposition home or self-care (01) ==
LOC: LBO 02:44
PROVIDERS: PCP Nurse Practitioner Family; Visit Provider Advanced Practice Midwife
DX: Z34.92 Encounter for supervision of normal pregnancy, unspecified, second trimester (principal)
CPT/HCPCS: 36415; 82950; 85027

== ENCOUNTER 2024-06-04 10:02 | Outpatient (REF) | payer MEDICAID, SELFPAY ==
[2024-06-04 10:59] LABS: Fetal Fibronectin Negative (Negative)
== END 2024-06-04 10:03 | disposition home or self-care (01) ==
LOC: LBN 10:02
PROVIDERS: PCP Nurse Practitioner Family; Visit Provider Advanced Practice Midwife
DX: O46.93 Antepartum hemorrhage, unspecified, third trimester (principal); Z3A.31 31 weeks gestation of pregnancy
CPT/HCPCS: 82731; 87480; 87510; 87660

== ENCOUNTER 2024-06-17 11:07 | Outpatient (REF) | payer MEDICAID, SELFPAY ==
[2024-06-17 12:24] LABS: Fetal Fibronectin Negative (Negative)
== END 2024-06-17 11:08 | disposition home or self-care (01) ==
LOC: LBN 11:07
PROVIDERS: PCP Nurse Practitioner Family; Visit Provider Advanced Practice Midwife
DX: O47.03 False labor before 37 completed weeks of gestation, third trimester (principal)
CPT/HCPCS: 82731

== ENCOUNTER 2024-06-17 11:07 | Outpatient (REF) | payer MEDICAID, SELFPAY | END 2024-06-17 11:08 | disposition home or self-care (01) | LOC: LBN 11:07 | PROVIDERS: PCP Nurse Practitioner Family; Visit Provider Advanced Practice Midwife | DX: O46.93 Antepartum hemorrhage, unspecified, third trimester (principal) | CPT/HCPCS: 87480; 87510; 87660 ==

== ENCOUNTER 2024-06-19 00:39 | Outpatient (CLI) | payer MEDICAID, SELFPAY ==
--- OUTSIDE RECORDS SUMMARY | 2024-06-19 00:43 | XMS_ITS | Encounter Summary ---
Author Organization [facility] Address [address] [place] [address] Care Team Providers Care Veneer Stock Grader Name Role Phone Magdaleno Lacey MD Primary Care Provider +1- [phone] Reason for Visit * Reason Comments Abdominal Pain Pt reports epigastri c pain started 15 min ago, denies nausea, 03/23 , pt with mom whom is here visiting room 4 Encounter Details Date Type Department Care Team (Late st Contact Info) Description 07/04/2009 17:02 EDT - 07/04/2009 18:24 EDT Emergency [facility] Emergency Department - [address] [address] Sarthak Solomon MD Emergency, MD Anastasiia Abdominal [...] * ABDOMINAL PAIN: AFTER YOUR CHILD'S VISIT ([place]) documented in this encounter Discharge Disposition Disposition [...] RN) documented in this encounter Care Teams Veneer Stock Grader Relationship Specialty Start Date End Date Magdaleno Lacey MD [address] [place] [id number] PCP - General 07/04/09 04/26/21 documented as of this encounter
--- OUTSIDE RECORDS SUMMARY | 2024-06-19 00:43 | XMS_ITS | Encounter Summary ---
Author Organization [facility] Address [address] [place] [address] Care Team Providers Care Rock Contractor Name Role Phone Unavailable Primary Care Provider Unavailabl e Encounter Details Date Type Department Care Team (Late st Contact Info) Description 01/17/2024 Lab Requisition [facility] Pathology & Laboratory Medicine - [facility] [address] [place] [address] [place], [place] [address] Encounter for supervision of normal , unspecified, [...] System with Manual Evaluation 01/22/2024 15:18 EDT [facility] Specimen Adequacy Satisfactory for Evaluation - transformation zone component absent 01/22/2024 15:18 EDT [facility] General Categorization Negative for intraepithelial lesion or malignancy 01/22/2024 15:18 EDT [facility] Descriptive Diagnosis Fungal organisms present morphologically consistent with Erika species. 01/22/2024 15:18 EDT [facility] Attestation . 01/22/2024 15:18 T [facility] at 1518 Clinical History SEE BELOW 01/22/20 15:18 EDT [facility] Performing Lab [facility] 01/22/2024 15:18 EDT [facility] Scanned Images 01/22/2024 15:18 EDT [facility] Pap Test CERVIX UTERI STRUCTURE / Unknown 01/16/2024 14:00 EDT 01/17/2024 14:55 EDT Michelle Roe CNM PATHOLOGY ORDERABLES [facility] [address] [place] [address] documented in this encounter Visit Diagnoses Diagnosis Encounter for supervision of normal , unspecified, unspecified trimester Encounter for supervision of normal , unspecified, first trimester documented in this encounter
--- OUTSIDE RECORDS SUMMARY | 2024-06-19 00:43 | XMS_ITS | Encounter Summary ---
Author Organization [facility] Address [address] [place] [address] Care Team Providers Care Bag Mender Name Role Phone Unavailable Primary Care Provider Unavailabl e Encounter Details Date Type Department Care Team (Late st Contact Info) Description 01/16/2024 Lab Requisition [facility] Pathology & Laboratory Medicine - [facility] [address] [place] [address] Outr Resulting Lab, Provider Social History Tobacco [...] Ab Positive See Note 01/17/2024 11:19 EDT [facility] Comment:Presence of detectab le Varicella Zoster virus IgG antibodies. Blood VENOUS BLOOD / Unknown 01/16/2024 15:10 EDT 01/16/2024 20:35 EDT Provider Outr Resulting Lab IMMUNOLOGY A ND SEROLOGY ORDERABLES [facility] [address] [place] [address] * RUBELLA IGG ANTIBODY (01/16/2024 15:10 EDT) Rubella IgG Ab Positive See Note 01/17/2024 11:25 EDT [facility] Comment:Positive for IgG ant ibodies to Rubella virus. Blood VENOUS BLOOD / Unknown 01/16/2024 15:10 EDT 01/16/2024 20:35 EDT Provider Outr Resulting Lab CHEMISTRY & BLOOD GAS ORDERABLES [facility] [address] [place], [place] [address] documented in this encounter Visit Diagnoses Not on filedocumented in this encounter
--- OUTSIDE RECORDS SUMMARY | 2024-06-19 00:43 | XMS_ITS | Encounter Summary ---
Author Organization [facility] Address [address] [place] [address] Care Team Providers Care Sales Support Rep Name Role Phone Unavailable Primary Care Provider Unavailabl e Encounter Details Date Type Department Care Team (Late st Contact Info) Description 04/29/2024 Lab Requisition [facility] Pathology & Laboratory Medicine - [facility] [address] [place], [place] [id number] Outr Resulting Lab, Provider Social History Tobacco [...] gonorrhoeae Result Negative Negative 04/30/2024 14:21 EDT [facility] Chlamydia trachomatis Result Negative Negative 04/30/2024 14:21 EDT [facility] Swab VAGINAL STRUCTURE / Unknown 04/29/2024 11:10 EDT 04/29/2024 17:43 EDT Provider Outr Resulting Lab MICROBIOLOGY - GENERAL ORDERABLES [facility] [address] [place] [address] documented in this encounter Visit Diagnoses Not on filedocumented in this encounter
--- OUTSIDE RECORDS SUMMARY | 2024-06-19 00:43 | XMS_ITS | Encounter Summary ---
Author Organization [facility] Address [address] [place] [address] Care Team Providers Care Beam Dyer Name Role Phone Unavailable Primary Care Provider Unavailabl e Encounter Details Date Type Department Care Team (Late st Contact Info) Description 01/16/2024 Lab Requisition [facility] Pathology & Laboratory Medicine - [facility] [address] [place], [place] [id number] Outr Resulting Lab, Provider Social History Tobacco [...] Surface Ag Negative Negative 01/17/2024 8:01 EDT [facility] Blood VENOUS BLOOD / Unknown 01/16/2024 15:10 EDT 01/16/2024 20:35 EDT Provider Outr Resulting Lab CHEMISTRY & BLOOD GAS ORDERABLES [facility] [address] [place], [place] [id number] * HEPATITIS C AB W REFLEX TO HCV RNA BY PCR (01/16/2024 15:10 EDT) Hep C Antibody Negative Negative 01/17/2024 8:39 EDT [facility] Blood VENOUS BLOOD / Unknown 01/16/2024 15:10 EDT 01/16/2024 20:35 EDT Provider Outr Resulting Lab CHEMISTRY & BLOOD GAS ORDERABLES [facility] [address] [place], [place] [id number] documented in this encounter Visit Diagnoses Not on filedocumented in this encounter
--- OUTSIDE RECORDS SUMMARY | 2024-06-19 00:43 | XMS_ITS | Encounter Summary ---
Author Organization [facility] Address [address] [place] [address] Care Team Providers Care Regional Sales Director Name Role Phone Unavailable Primary Care Provider Unavailabl e Encounter Details Date Type Department Care Team (Late st Contact Info) Description 01/16/2024 Lab Requisition [facility] Pathology & Laboratory Medicine - [address] [address] Outr Resulting Lab, Provider Social History Tobacco [...] gonorrhoeae Result Negative Negative 01/17/2024 15:21 EDT [facility] Chlamydia trachomatis Result Negative Negative 01/17/2024 15:21 EDT [facility] Pap Test CERVIX UTERI STRUCTURE / Unknown 01/16/2024 14:00 EDT 01/17/2024 9:46 EDT Provider Outr Resulting Lab MICROBIOLOGY - GENERAL ORDERABLES [facility] [address] [place] [address] documented in this encounter Visit Diagnoses Not on filedocumented in this encounter
--- OUTSIDE RECORDS SUMMARY | 2024-06-19 00:43 | XMS_ITS | Clinical Summary ---
Author Organization [facility] Address [address] [place] [address] Care Team Providers Care Title Attorney Name Role Phone Unavailable Primary Care Provider Unavailabl e Allergies No known active allergies Medications No known medications Encounters Date Type Department Care Team Description 04/29/2024 Lab Requisition [facility] Pathology & Laboratory Medicine - [facility] [address] [place] [address] Outr Resulting Lab, Provider from Last 3 [...] gonorrhoeae Result Negative Negative 04/30/2024 14:21 EDT [facility] Chlamydia trachomatis Result Negative Negative 04/30/2024 14:21 EDT [facility] Swab VAGINAL STRUCTURE / Unknown 04/29/2024 11:10 EDT 04/29/2024 17:43 EDT Provider Outr Resulting Lab MICROBIOLOGY - GENERAL ORDERABLES Performing Organization Address City/[facility]/ZIP Co de Phone Number [facility] [address] [place] [address] * HEPATITIS C AB W REFLEX TO HCV RNA BY PCR (01/16/2024 15:10 EDT) Hep C Antibody Negative Negative 01/17/2024 8:39 EDT [facility] Blood VENOUS BLOOD / Unknown 01/16/2024 15:10 EDT 01/16/2024 20:35 EDT Provider Outr Resulting Lab CHEMISTRY & BLOOD GAS ORDERABLES [facility] [address] [place] [address] from Last 3 Months or Most Recently Relevant to Health Maintenance
--- OUTSIDE RECORDS SUMMARY | 2024-06-19 00:43 | XMS_ITS | Encounter Summary ---
Author Organization [facility] Address [address] [place] [address] Care Team Providers Care Reliability Specialist Name Role Phone Unavailable Primary Care Provider Unavailabl e Encounter Details Date Type Department Care Team (Late st Contact Info) Description 01/16/2024 Lab Requisition [facility] Pathology & Laboratory Medicine - [facility] [address] [place], [place] [phone] Outr Resulting Lab, Provider Social History Tobacco [...] 4th Generation Negative Negative 01/17/2024 9:05 EDT [facility] Comment:If acute HIV-1 infec tion is suspected in a high risk patient, submit plasma specimen for HIV-1 RNA quantitation test. Blood VENOUS BLOOD / Unknown 01/16/2024 15:10 EDT 01/16/2024 20:35 EDT Narrative [facility] - 01/17/2024 9:05 EDT Fourth Generation assay performed on the [employer] XPT. Provider Outr Resulting Lab IMMUNOLOGY A ND SEROLOGY ORDERABLES [facility] [address] [place] [address] documented in this encounter Visit Diagnoses Not on filedocumented in this encounter
--- OUTSIDE RECORDS SUMMARY | 2024-06-19 00:43 | XMS_ITS | Referral Summary ---
Author Organization [facility] Address [address] [place] [address] Care Team Providers Care Montessori Toddler Teacher Name Role Phone Unavailable Primary Care Provider Unavailabl e Encounters Date Type Department Care Team Description 04/29/2024 Lab Requisition [facility] Pathology & Laboratory Medicine - [facility] [address] [place] [address] Outr Resulting Lab, Provider from Last 3 [...] gonorrhoeae Result Negative Negative 04/30/2024 14:21 EDT [facility] Chlamydia trachomatis Result Negative Negative 04/30/2024 14:21 EDT [facility] Swab VAGINAL STRUCTURE / Unknown 04/29/2024 11:10 EDT 04/29/2024 17:43 EDT Provider Outr Resulting Lab MICROBIOLOGY - GENERAL ORDERABLES Performing Organization Address City/[facility]/ZIP Co de Phone Number [facility] [address] [place] [address] * HEPATITIS C AB W REFLEX TO HCV RNA BY PCR (01/16/2024 15:10 EDT) Hep C Antibody Negative Negative 01/17/2024 8:39 EDT [facility] Blood VENOUS BLOOD / Unknown 01/16/2024 15:10 EDT 01/16/2024 20:35 EDT Provider Outr Resulting Lab CHEMISTRY & BLOOD GAS ORDERABLES [facility] [address] [place] [address] from Last 3 Months or Most Recently Relevant to Health Maintenance
--- NOTE | 2024-06-19 07:00 | DI.US_ITS ---
Exam(s) US OB CHATA WEIGHT EXAM: US OB CHATA WEIGHT CLINICAL HISTORY: cervical length for contractions and spotting. TECHNIQUE: Transabdominal obstetrical ultrasound performed. COMPARISON: US US OB F/U FACIAL/LVOT/RVOT from 03/13/2024 FINDINGS: Number of fetuses: 1 position: BREECH Placental location: There is a grade 2 anterior placenta. No evidence of previa. Cervical length: 4.7 cm. BIOMETRIC DATA: BPD: 8.56cm, 34weeks 4days HC: 30.15cm, 33weeks 3days AC: 28.8cm, 32weeks 6days FL: 6.26cm, 32weeks 3days EFW: 2,076.78g, 4lb 10.26oz, 26.8% Composite Age: 33weeks 2days CINDY: 08/05/2024 Heart Rate: 148bpm Amniotic fluid index: 16.19cm. The largest pocket is 6.5 cm. IMPRESSION: 1. Single live intrauterine gestation as above. 2. Estimated weight is 2077gms. This is the 27th percentile. 3. Amniotic fluid index is 16.2 cm. The largest pocket is 6.5 cm. 4. The cervical length is 4.7 cm. DATA REPOSITORY:
== END 2024-06-19 00:59 ==
LOC: DI 00:40
PROVIDERS: PCP Nurse Practitioner Family; Visit Provider Advanced Practice Midwife
DX: O47.00 False labor before 37 completed weeks of gestation, unspecified trimester; Z3A.33 33 weeks gestation of pregnancy
CPT/HCPCS: 76816

== ENCOUNTER 2024-07-08 09:31 | Outpatient (REF) | payer MEDICAID, SELFPAY | END 2024-07-08 09:32 | disposition home or self-care (01) | LOC: LBN 09:31 | PROVIDERS: PCP Nurse Practitioner Family; Visit Provider Advanced Practice Midwife | DX: Z34.93 Encounter for supervision of normal pregnancy, unspecified, third trimester (principal) | CPT/HCPCS: 87081 ==

== ENCOUNTER 2024-07-20 10:34 | Outpatient (CLI) | payer MEDICAID, SELFPAY ==
--- OUTSIDE RECORDS SUMMARY | 2024-07-20 10:39 | XMS_ITS | Encounter Summary ---
Author Organization [facility] Address [address] [place] [address] Care Team Providers Care Survey Manager Name Role Phone Unavailable Primary Care Provider Unavailabl e Encounter Details Date Type Department Care Team (Late st Contact Info) Description 01/16/[address] [facility] Pathology & Laboratory Medicine - [facility] [address] [place], [place] [phone] Outr Resulting Lab, Provider Social History Tobacco [...] Surface Ag Negative Negative 01/17/2024 8:01 EDT [facility] Blood VENOUS BLOOD / Unknown 01/16/2024 15:10 EDT 01/16/2024 20:35 EDT Provider Outr Resulting Lab CHEMISTRY & BLOOD GAS ORDERABLES [facility] [address] [place], [place] [address] * HEPATITIS C AB W REFLEX TO HCV RNA BY PCR (01/16/2024 15:10 EDT) Hep C Antibody Negative Negative 01/17/2024 8:39 EDT [facility] Blood VENOUS BLOOD / Unknown 01/16/2024 15:10 EDT 01/16/2024 20:35 EDT Provider Outr Resulting Lab CHEMISTRY & BLOOD GAS ORDERABLES [facility] [address] [place], [place] [id number] documented in this encounter Visit Diagnoses Not on filedocumented in this encounter
--- OUTSIDE RECORDS SUMMARY | 2024-07-20 10:39 | XMS_ITS | Encounter Summary ---
Author Organization [facility] Address [address] [place] [address] Care Team Providers Care Bioinformatics Specialist Name Role Phone Magdaleno Lacey MD Primary Care Provider [phone]- [phone] Reason for Visit * Reason Comments Abdominal Pain Pt reports epigastri c pain started 15 min ago, denies nausea, 03/23 , pt with mom whom is here visiting room 4 Encounter Details Date Type Department Care Team (Late st Contact Info) Description 07/04/2009 17:02 EDT - 07/04/2009 18:[address] [facility] Emergency Department - [address] [address] Sarthak Solomon MD Emergency, MD Anastasiia Abdominal [...] * ABDOMINAL PAIN: AFTER YOUR CHILD'S VISIT ([place]) documented in this encounter Discharge Disposition Disposition [...] RN) documented in this encounter Care Teams Bioinformatics Specialist Relationship Specialty Start Date End Date Magdaleno Lacey MD [address] [place] [id number] PCP - General 07/04/09 04/26/21 documented as of this encounter
--- OUTSIDE RECORDS SUMMARY | 2024-07-20 10:39 | XMS_ITS | Encounter Summary ---
Author Organization [facility] Address [address] [place] [address] Care Team Providers Care Stunner And Shackler Name Role Phone Unavailable Primary Care Provider Unavailabl e Encounter Details Date Type Department Care Team (Late st Contact Info) Description 01/16/[address] [facility] Pathology & Laboratory Medicine - [address] [address] Outr Resulting Lab, Provider Social History Tobacco [...] gonorrhoeae Result Negative Negative 01/17/2024 15:21 EDT [facility] Chlamydia trachomatis Result Negative Negative 01/17/2024 15:21 EDT [facility] Pap Test CERVIX UTERI STRUCTURE / Unknown 01/16/2024 14:00 EDT 01/17/2024 9:46 EDT Provider Outr Resulting Lab MICROBIOLOGY - GENERAL ORDERABLES [facility] [address] [place] [address] documented in this encounter Visit Diagnoses Not on filedocumented in this encounter
--- OUTSIDE RECORDS SUMMARY | 2024-07-20 10:39 | XMS_ITS | Encounter Summary ---
Author Organization [facility] Address [address] [place] [address] Care Team Providers Care Product Support Manager Name Role Phone Unavailable Primary Care Provider Unavailabl e Encounter Details Date Type Department Care Team (Late st Contact Info) Description 04/29/2024 Lab Requisition [facility] Pathology & Laboratory Medicine - [facility] [address] [place], [place] [phone] Outr Resulting Lab, Provider Social History Tobacco [...] gonorrhoeae Result Negative Negative 04/30/2024 14:21 EDT [facility] Chlamydia trachomatis Result Negative Negative 04/30/2024 14:21 EDT [facility] Swab VAGINAL STRUCTURE / Unknown 04/29/2024 11:10 EDT 04/29/2024 17:43 EDT Provider Outr Resulting Lab MICROBIOLOGY - GENERAL ORDERABLES [facility] [address] [place] [address] documented in this encounter Visit Diagnoses Not on filedocumented in this encounter
--- OUTSIDE RECORDS SUMMARY | 2024-07-20 10:39 | XMS_ITS | Encounter Summary ---
Author Organization [facility] Address [address] [place] [address] Care Team Providers Care Record Press Supervisor Name Role Phone Unavailable Primary Care Provider Unavailabl e Encounter Details Date Type Department Care Team (Late st Contact Info) Description 01/16/2024 Lab Requisition [facility] Pathology & Laboratory Medicine - [facility] [address] [place] [address] Outr Resulting Lab, Provider Social History Tobacco [...] Ab Positive See Note 01/17/2024 11:19 EDT [facility] Comment:Presence of detectab le Varicella Zoster virus IgG antibodies. Blood VENOUS BLOOD / Unknown 01/16/2024 15:10 EDT 01/16/2024 20:35 EDT Provider Outr Resulting Lab IMMUNOLOGY A ND SEROLOGY ORDERABLES [facility] [address] [place] [address] * RUBELLA IGG ANTIBODY (01/16/2024 15:10 EDT) Rubella IgG Ab Positive See Note 01/17/2024 11:25 EDT [facility] Comment:Positive for IgG ant ibodies to Rubella virus. Blood VENOUS BLOOD / Unknown 01/16/2024 15:10 EDT 01/16/2024 20:35 EDT Provider Outr Resulting Lab CHEMISTRY & BLOOD GAS ORDERABLES [facility] [address] [place], [place] [address] documented in this encounter Visit Diagnoses Not on filedocumented in this encounter
--- OUTSIDE RECORDS SUMMARY | 2024-07-20 10:39 | XMS_ITS | Referral Summary ---
Author Organization [facility] Address [address] [place] [address] Care Team Providers Care Radiographer Name Role Phone Unavailable Primary Care Provider Unavailabl e Encounters Date Type Department Care Team Description 04/29/2024 Lab Requisition [facility] Pathology & Laboratory Medicine - [facility] [address] [place] [address] Outr Resulting Lab, Provider from Last 3 [...] gonorrhoeae Result Negative Negative 04/30/2024 14:21 EDT [facility] Chlamydia trachomatis Result Negative Negative 04/30/2024 14:21 EDT [facility] Swab VAGINAL STRUCTURE / Unknown 04/29/2024 11:10 EDT 04/29/2024 17:43 EDT Provider Outr Resulting Lab MICROBIOLOGY - GENERAL ORDERABLES Performing Organization Address City/[facility]/ZIP Co de Phone Number [facility] [address] [place] [address] * HEPATITIS C AB W REFLEX TO HCV RNA BY PCR (01/16/2024 15:10 EDT) Hep C Antibody Negative Negative 01/17/2024 8:39 EDT [facility] Blood VENOUS BLOOD / Unknown 01/16/2024 15:10 EDT 01/16/2024 20:35 EDT Provider Outr Resulting Lab CHEMISTRY & BLOOD GAS ORDERABLES [facility] [address] [place] [address] from Last 3 Months or Most Recently Relevant to Health Maintenance
--- OUTSIDE RECORDS SUMMARY | 2024-07-20 10:39 | XMS_ITS | Encounter Summary ---
Author Organization [facility] Address [address] [place] [address] Care Team Providers Care Cotton Presser Name Role Phone Unavailable Primary Care Provider Unavailabl e Encounter Details Date Type Department Care Team (Late st Contact Info) Description 01/17/2024 Lab Requisition [facility] Pathology & Laboratory Medicine - [facility] [address] [place] [address] [place], [place] [address] Encounter for supervision of normal , unspecified, [...] System with Manual Evaluation 01/22/2024 15:18 EDT [facility] Specimen Adequacy Satisfactory for Evaluation - transformation zone component absent 01/22/2024 15:18 EDT [facility] General Categorization Negative for intraepithelial lesion or malignancy 01/22/2024 15:18 EDT [facility] Descriptive Diagnosis Fungal organisms present morphologically consistent with Erika species. 01/22/2024 15:18 EDT [facility] Attestation . 01/22/2024 15:18 T [facility] at 1518 Clinical History SEE BELOW 01/22/20 15:18 EDT [facility] Performing Lab [facility] 01/22/2024 15:18 EDT [facility] Scanned Images 01/22/2024 15:18 EDT [facility] Pap Test CERVIX UTERI STRUCTURE / Unknown 01/16/2024 14:00 EDT 01/17/2024 14:55 EDT Michelle Roe CNM PATHOLOGY ORDERABLES [facility] [address] [place] [address] documented in this encounter Visit Diagnoses Diagnosis Encounter for supervision of normal , unspecified, unspecified trimester Encounter for supervision of normal , unspecified, first trimester documented in this encounter
--- OUTSIDE RECORDS SUMMARY | 2024-07-20 10:39 | XMS_ITS | Encounter Summary ---
Author Organization [facility] Address [address] [place] [address] Care Team Providers Care Ore Dryer Name Role Phone Unavailable Primary Care Provider Unavailabl e Encounter Details Date Type Department Care Team (Late st Contact Info) Description 01/16/2024 Lab Requisition [facility] [address] [place], [place] [phone] Outr Resulting Lab, Provider Social History Tobacco [...] 4th Generation Negative Negative 01/17/2024 9:05 EDT [facility] Comment:If acute HIV-1 infec tion is suspected in a high risk patient, submit plasma specimen for HIV-1 RNA quantitation test. Blood VENOUS BLOOD / Unknown 01/16/2024 15:10 EDT 01/16/2024 20:35 EDT Narrative [facility] - 01/17/2024 9:05 EDT Fourth Generation assay performed on the [employer] XPT. Provider Outr Resulting Lab IMMUNOLOGY A ND SEROLOGY ORDERABLES [facility] [address] [place] [address] documented in this encounter Visit Diagnoses Not on filedocumented in this encounter
--- OUTSIDE RECORDS SUMMARY | 2024-07-20 10:39 | XMS_ITS | Clinical Summary ---
Author Organization [facility] Address [address] [place] [address] Care Team Providers Care Exercise Physiology Professor Name Role Phone Unavailable Primary Care Provider Unavailabl e Allergies No known active allergies Medications No known medications Encounters Date Type Department Care Team Description 04/29/2024 Lab Requisition [facility] Pathology & Laboratory Medicine - [facility] [address] [place] [address] Outr Resulting Lab, Provider from Last 3 [...] gonorrhoeae Result Negative Negative 04/30/2024 14:21 EDT [facility] Chlamydia trachomatis Result Negative Negative 04/30/2024 14:21 EDT [facility] Swab VAGINAL STRUCTURE / Unknown 04/29/2024 11:10 EDT 04/29/2024 17:43 EDT Provider Outr Resulting Lab MICROBIOLOGY - GENERAL ORDERABLES Performing Organization Address City/[facility]/ZIP Co de Phone Number [facility] [address] [place] [address] * HEPATITIS C AB W REFLEX TO HCV RNA BY PCR (01/16/2024 15:10 EDT) Hep C Antibody Negative Negative 01/17/2024 8:39 EDT [facility] Blood VENOUS BLOOD / Unknown 01/16/2024 15:10 EDT 01/16/2024 20:35 EDT Provider Outr Resulting Lab CHEMISTRY & BLOOD GAS ORDERABLES [facility] [address] [place] [address] from Last 3 Months or Most Recently Relevant to Health Maintenance
[2024-07-20 10:58] VITALS: BP 129/83; PULSE 112
[2024-07-20 11:17] VITALS: BP 129/83; PULSE 112; TEMP 36.4
--- NOTE | 2024-07-20 11:54 | W.OBNST ---
Date of service: 07/20/24 Time of Service: 11:54 NST Evaluation Reason for NST Reasons for Nonstress Test: OTHER, SEE COMMENT Reason for NST Other: Mucsousy Discharge Gestational Age Gestational Age in Weeks and Days: 37 Weeks and 5Days Test and Monitor Explained Test/Monitor Explained: Test Explained, Monitor Explained and Patient Verbalized Understanding Vital Signs Blood Pressure: 129/83 Pulse: 112 Temperature: 97.5 F Urine Results Urine Protein: Negative Urine Ketones: Negative Urine Glucose: Negative Urine Blood: Negative NST Information Date on Monitor: 07/20/24 Time on Monitor: 10:56 Date off Monitor: 07/20/24 NST Interventions: PO Hydration, Notify Provider and Other Contraction Frequency: 0 NST Evaluation Patient States Movement: Present FHR Baseline: 140 Variability: Moderate 6-25 bpm Accelerations: 15x15 Decelerations: None NST Results: Reactive Note Ultrasound Done: N/A. NST Note Note: SSE performed, negative for pooling, nitrizine or ferning Cvx 1/60% vtx -3, intact membranes, nml appearing vaginal mucous NST Reviewed and Verified by: Michelle Roe
[2024-07-20 11:55] VITALS: BP 129/83; PULSE 112; TEMP 36.4
== END 2024-07-20 11:38 ==
LOC: BCD 10:38 → OBS 10:53
PROVIDERS: PCP Nurse Practitioner Family; Visit Provider Advanced Practice Midwife
DX: O26.893 Other specified pregnancy related conditions, third trimester (principal); N89.8 Other specified noninflammatory disorders of vagina; Z3A.37 37 weeks gestation of pregnancy
CPT/HCPCS: 59025

== ENCOUNTER 2024-07-22 14:32 | Outpatient (CLI) | payer MEDICAID, SELFPAY ==
[2024-07-22] VITALS (16 sets, daily range): BP systolic 110–142; BP diastolic 71–88; PULSE 106–133; TEMP 36.6; O2SAT 100
--- OUTSIDE RECORDS SUMMARY | 2024-07-22 14:34 | XMS_ITS | Encounter Summary ---
Author Organization [facility] Address [address] [place] [address] Care Team Providers Care Sewer Pipe Layer Name Role Phone Magdaleno Lacey MD Primary Care Provider +1- [phone] Reason for Visit * Reason Comments Abdominal Pain Pt reports epigastri c pain started 15 min ago, denies nausea, 03/23 , pt with mom whom is here visiting room 4 Encounter Details Date Type Department Care Team (Late st Contact Info) Description 07/04/2009 17:02 EDT - 07/04/2009 18:24 EDT Emergency [facility] Emergency Department - [address] [address] Sarthak Solomon MD Emergency, MD Anastasiia Abdominal [...] * ABDOMINAL PAIN: AFTER YOUR CHILD'S VISIT ([place]) documented in this encounter Discharge Disposition Disposition [...] RN) documented in this encounter Care Teams Sewer Pipe Layer Relationship Specialty Start Date End Date Magdaleno Lacey MD [address] [place] [id number] PCP - General 07/04/09 04/26/21 documented as of this encounter
--- OUTSIDE RECORDS SUMMARY | 2024-07-22 14:34 | XMS_ITS | Encounter Summary ---
Author Organization [facility] Address [address] [place] [address] Care Team Providers Care Rn Admit Name Role Phone Unavailable Primary Care Provider Unavailabl e Encounter Details Date Type Department Care Team (Late st Contact Info) Description 01/16/2024 Lab Requisition [facility] Pathology & Laboratory Medicine - [facility] [address] [place] [address] Outr Resulting Lab, Provider Social History Tobacco [...] Ab Positive See Note 01/17/2024 11:19 EDT [facility] Comment:Presence of detectab le Varicella Zoster virus IgG antibodies. Blood VENOUS BLOOD / Unknown 01/16/2024 15:10 EDT 01/16/2024 20:35 EDT Provider Outr Resulting Lab IMMUNOLOGY A ND SEROLOGY ORDERABLES [facility] [address] [place] [address] * RUBELLA IGG ANTIBODY (01/16/2024 15:10 EDT) Rubella IgG Ab Positive See Note 01/17/2024 11:25 EDT [facility] Comment:Positive for IgG ant ibodies to Rubella virus. Blood VENOUS BLOOD / Unknown 01/16/2024 15:10 EDT 01/16/2024 20:35 EDT Provider Outr Resulting Lab CHEMISTRY & BLOOD GAS ORDERABLES [facility] [address] [place], [place] [address] documented in this encounter Visit Diagnoses Not on filedocumented in this encounter
--- OUTSIDE RECORDS SUMMARY | 2024-07-22 14:34 | XMS_ITS | Encounter Summary ---
Author Organization [facility] Address [address] [place] [address] Care Team Providers Care Nail Expert Name Role Phone Unavailable Primary Care Provider Unavailabl e Encounter Details Date Type Department Care Team (Late st Contact Info) Description 04/29/2024 Lab Requisition [facility] Pathology & Laboratory Medicine - [facility] [address] [place], [place] [id number] Outr Resulting Lab, Provider Social History Tobacco [...] gonorrhoeae Result Negative Negative 04/30/2024 14:21 EDT [facility] Chlamydia trachomatis Result Negative Negative 04/30/2024 14:21 EDT [facility] Swab VAGINAL STRUCTURE / Unknown 04/29/2024 11:10 EDT 04/29/2024 17:43 EDT Provider Outr Resulting Lab MICROBIOLOGY - GENERAL ORDERABLES [facility] [address] [place] [address] documented in this encounter Visit Diagnoses Not on filedocumented in this encounter
--- OUTSIDE RECORDS SUMMARY | 2024-07-22 14:34 | XMS_ITS | Encounter Summary ---
Author Organization [facility] Address [address] [place] [address] Care Team Providers Care Rib Chopper Name Role Phone Unavailable Primary Care Provider Unavailabl e Encounter Details Date Type Department Care Team (Late st Contact Info) Description 01/16/2024 Lab Requisition [facility] Pathology & Laboratory Medicine - [address] [address] Outr Resulting Lab, Provider Social History Tobacco [...] gonorrhoeae Result Negative Negative 01/17/2024 15:21 EDT [facility] Chlamydia trachomatis Result Negative Negative 01/17/2024 15:21 EDT [facility] Pap Test CERVIX UTERI STRUCTURE / Unknown 01/16/2024 14:00 EDT 01/17/2024 9:46 EDT Provider Outr Resulting Lab MICROBIOLOGY - GENERAL ORDERABLES [facility] [address] [place] [address] documented in this encounter Visit Diagnoses Not on filedocumented in this encounter
--- OUTSIDE RECORDS SUMMARY | 2024-07-22 14:34 | XMS_ITS | Encounter Summary ---
Author Organization [facility] Address [address] [place] [address] Care Team Providers Care Sand Shoveler Name Role Phone Unavailable Primary Care Provider Unavailabl e Encounter Details Date Type Department Care Team (Late st Contact Info) Description 01/16/2024 Lab Requisition [facility] Pathology & Laboratory Medicine - [facility] [address] [place], [place] [id number] Outr Resulting Lab, Provider Social History Tobacco [...] 4th Generation Negative Negative 01/17/2024 9:05 EDT [facility] Comment:If acute HIV-1 infec tion is suspected in a high risk patient, submit plasma specimen for HIV-1 RNA quantitation test. Blood VENOUS BLOOD / Unknown 01/16/2024 15:10 EDT 01/16/2024 20:35 EDT Narrative [facility] - 01/17/2024 9:05 EDT Fourth Generation assay performed on the Siemens RPOaur XPT. Provider Outr Resulting Lab IMMUNOLOGY A ND SEROLOGY ORDERABLES [facility] [address] [place] [address] documented in this encounter Visit Diagnoses Not on filedocumented in this encounter
--- OUTSIDE RECORDS SUMMARY | 2024-07-22 14:34 | XMS_ITS | Clinical Summary ---
Author Organization [facility] Address [address] [place] [address] Care Team Providers Care Multiple Sclerosis Nurse Name Role Phone Unavailable Primary Care Provider Unavailabl e Allergies No known active allergies Medications No known medications Encounters Date Type Department Care Team Description 04/29/2024 Lab Requisition [facility] Pathology & Laboratory Medicine - [facility] [address] [place] [address] Outr Resulting Lab, Provider from Last 3 [...] gonorrhoeae Result Negative Negative 04/30/2024 14:21 EDT [facility] Chlamydia trachomatis Result Negative Negative 04/30/2024 14:21 EDT [facility] Swab VAGINAL STRUCTURE / Unknown 04/29/2024 11:10 EDT 04/29/2024 17:43 EDT Provider Outr Resulting Lab MICROBIOLOGY - GENERAL ORDERABLES Performing Organization Address City/[facility]/ZIP Co de Phone Number [facility] [address] [place] [address] * HEPATITIS C AB W REFLEX TO HCV RNA BY PCR (01/16/2024 15:10 EDT) Hep C Antibody Negative Negative 01/17/2024 8:39 EDT [facility] Blood VENOUS BLOOD / Unknown 01/16/2024 15:10 EDT 01/16/2024 20:35 EDT Provider Outr Resulting Lab CHEMISTRY & BLOOD GAS ORDERABLES [facility] [address] [place] [address] from Last 3 Months or Most Recently Relevant to Health Maintenance
--- OUTSIDE RECORDS SUMMARY | 2024-07-22 14:34 | XMS_ITS | Encounter Summary ---
Author Organization [facility] Address [address] [place] [address] Care Team Providers Care Scientist/Engineer Name Role Phone Unavailable Primary Care Provider Unavailabl e Encounter Details Date Type Department Care Team (Late st Contact Info) Description 01/16/2024 Lab Requisition [facility] Pathology & Laboratory Medicine - [facility] [address] [place], [place] [id number] Outr Resulting Lab, Provider Social History Tobacco [...] Surface Ag Negative Negative 01/17/2024 8:01 EDT [facility] Blood VENOUS BLOOD / Unknown 01/16/2024 15:10 EDT 01/16/2024 20:35 EDT Provider Outr Resulting Lab CHEMISTRY & BLOOD GAS ORDERABLES [facility] [address] [place], [place] [address] * HEPATITIS C AB W REFLEX TO HCV RNA BY PCR (01/16/2024 15:10 EDT) Hep C Antibody Negative Negative 01/17/2024 8:39 EDT [facility] Blood VENOUS BLOOD / Unknown 01/16/2024 15:10 EDT 01/16/2024 20:35 EDT Provider Outr Resulting Lab CHEMISTRY & BLOOD GAS ORDERABLES [facility] [address] [place], [place] [id number] documented in this encounter Visit Diagnoses Not on filedocumented in this encounter
--- OUTSIDE RECORDS SUMMARY | 2024-07-22 14:34 | XMS_ITS | Encounter Summary ---
Author Organization [facility] Address [address] [place] [address] Care Team Providers Care Truck Jumper Name Role Phone Unavailable Primary Care Provider Unavailabl e Encounter Details Date Type Department Care Team (Late st Contact Info) Description 01/17/2024 Lab Requisition [facility] Pathology & Laboratory Medicine - [facility] [address] [place] [address] [place], [place] [address] Encounter for supervision of normal , unspecified, [...] System with Manual Evaluation 01/22/2024 15:18 EDT [facility] Specimen Adequacy Satisfactory for Evaluation - transformation zone component absent 01/22/2024 15:18 EDT [facility] General Categorization Negative for intraepithelial lesion or malignancy 01/22/2024 15:18 EDT [facility] Descriptive Diagnosis Fungal organisms present morphologically consistent with Erika species. 01/22/2024 15:18 EDT [facility] Attestation . 01/22/2024 15:18 T [facility] at 1518 Clinical History SEE BELOW 01/22/20 15:18 EDT [facility] Performing Lab [facility] 01/22/2024 15:18 EDT [facility] Scanned Images 01/22/2024 15:18 EDT [facility] Pap Test CERVIX UTERI STRUCTURE / Unknown 01/16/2024 14:00 EDT 01/17/2024 14:55 EDT Michelle oRe CNM PATHOLOGY ORDERABLES [facility] [address] [place] [address] documented in this encounter Visit Diagnoses Diagnosis Encounter for supervision of normal , unspecified, unspecified trimester Encounter for supervision of normal , unspecified, first trimester documented in this encounter
--- OUTSIDE RECORDS SUMMARY | 2024-07-22 14:34 | XMS_ITS | Referral Summary ---
Author Organization [facility] Address [address] [place] [address] Care Team Providers Care Biology Professor Name Role Phone Unavailable Primary Care Provider Unavailabl e Encounters Date Type Department Care Team Description 04/29/2024 Lab Requisition [facility] Pathology & Laboratory Medicine - [facility] [address] [place] [address] Outr Resulting Lab, Provider from Last 3 [...] gonorrhoeae Result Negative Negative 04/30/2024 14:21 EDT [facility] Chlamydia trachomatis Result Negative Negative 04/30/2024 14:21 EDT [facility] Swab VAGINAL STRUCTURE / Unknown 04/29/2024 11:10 EDT 04/29/2024 17:43 EDT Provider Outr Resulting Lab MICROBIOLOGY - GENERAL ORDERABLES Performing Organization Address City/[facility]/ZIP Co de Phone Number [facility] [address] [place] [address] * HEPATITIS C AB W REFLEX TO HCV RNA BY PCR (01/16/2024 15:10 EDT) Hep C Antibody Negative Negative 01/17/2024 8:39 EDT [facility] Blood VENOUS BLOOD / Unknown 01/16/2024 15:10 EDT 01/16/2024 20:35 EDT Provider Outr Resulting Lab CHEMISTRY & BLOOD GAS ORDERABLES [facility] [address] [place] [address] from Last 3 Months or Most Recently Relevant to Health Maintenance
[2024-07-22] MEDS: DEXTROSE 5%-LACTATED RINGERS 1,000 ML 999 ML IV ×2 (15:51→17:00)
[2024-07-22] MEDS: Ondansetron 4 MG/2 ML VIAL 8 MG IVP (15:58)
[2024-07-22] MEDS: Normal Saline Flush 10 ML SYR IVP (15:58)
--- NOTE | 2024-07-22 17:05 | W.OBNST ---
Date of service: 07/22/24 Time of Service: 17:06 NST Evaluation Reason for NST Reasons for Nonstress Test: FALSE LABOR Reason for NST Other: pt with loose stool, nausea, vomiting, unable to eat or drink today Gestational Age Gestational Age in Weeks and Days: 37 Weeks and 5Days Test and Monitor Explained Test/Monitor Explained: Test Explained, Monitor Explained and Patient Verbalized Understanding Vital Signs Blood Pressure: 110/71 Pulse: 106 Urine Results Urine Protein: Negative Urine Ketones: Positive Urine Glucose: Negative Urine Blood: Negative NST Information Date on Monitor: 07/22/24 Time on Monitor: 15:30 Date off Monitor: 07/22/24 Time off Monitor: 16:30 Total Time on Monitor: 60 NST Interventions: IV Fluids and Notify Provider Contraction Frequency: 1 per 10 minutes NST Evaluation Patient States Movement: Present FHR Baseline: 140 Variability: Moderate 6-25 bpm Accelerations: 15x15 Decelerations: None NST Results: Reactive Note Ultrasound Done: N/A. NST Note Note: Likely GI viral syndrome Pt to rehydrate with IVF D5LR until ketones are cleared Given Zofran 8 mg IVP Cvx 2/60% posterior, vtx -2, intact membranes Plan to discharge to await active labor at home, NST Reviewed and Verified by: Michelle Roe
[2024-07-22 19:58] LABS: Bilirubin Negative (Negative); Blood Negative (Negative); Clarity Clear (Clear); Glucose 250 mg/dL (Negative); Ketones Negative (Negative); Leukocyte Esterase Negative (Negative); Nitrite Negative (Negative); Urobilinogen 0.2 mg/dL (Up to 0.2)
== END 2024-07-22 18:25 ==
LOC: BCD 15:02 → OBS 15:03
PROVIDERS: PCP Nurse Practitioner Family; Visit Provider Advanced Practice Midwife
DX: O47.1 False labor at or after 37 completed weeks of gestation (principal); Z3A.37 37 weeks gestation of pregnancy
CPT/HCPCS: 59025; 96360; 96361; 81003; 87086; J2405

== ENCOUNTER 2024-07-23 03:37 | Inpatient (IN) | payer MEDICAID, SELFPAY ==
[2024-07-23] VITALS (14 sets, daily range): BP systolic 105–133; BP diastolic 59–85; PULSE 82–127; RESP 16–17; TEMP 36.6–37; O2SAT 97–99
--- NOTE | 2024-07-23 03:38 | HPE_ITS ---
Date of service: 07/23/24 Time of Service: 03:38 Assessment and Plan Assessment and plan (1) Normal labor: Status: Acute Assessment and plan: A: 29 yo @ 38+1 wks, SROM @ 0200 confirmed, clear GBS negative, Rh+, low risk for SD and PPH Category 1 tracing, P: Admit to BC, CBC, T&S Expectant management at this time Comfort measures as pt desires Monitor for progressing labor Anticipate OB-HPI Labor/Delivery History of Present Illness Reason for Visit: labor Chief Complaint: Suspected Rupture of Membranes , Associated Signs and Symptoms of Suspected ROM: gushes of water since 0200, no bleeding, some contractions. CINDY Calculator Estimated Delivery Date Method Current WG Current Estimate 08/05/24 Ultrasound #1 38w 1d Other Estimates 08/02/24 LMP (Uncertain) 38w 4d History of Present Expected Delivery Route/Plan - CNM FOB/boyfriend - Kamran Sr (his first child) BB yes to circ (?) GBS neg Interested in using the tub and nitrous oxide Specific Issues/Plan 1. BMI 33, early glucola=71, @ 28 wks glucola=86 2. Anxiety/depression, takes Effexor 75 mg qd; referred to [facility], pt declines for now 3. Known CF carrier, request lab result from [facility], FOB will want [place] [facility] neg 4. cfDNA screening: low risk x5 male 5. 5P negative, PHQ9 score is 2 6. Pt's pgm of ALS, offered [facility] telegenetic consult, declined 7. Left sided sciatica, PT referral offered & declined 8. Sudden of her mother from CT during 9. Spotting in 3rd trimester FFN-neg, Vaginal pathogen screen- neg. FFN repeated 06/17- neg 9a. US @ 33 wks, CHATA=16.9, EFW=26%ile, cervix 4.7 cms, breech Assessment: History Reviewed & Current Review of Systems Narrative: ROS noncontributory other than HPI PFSH All Active Problems (Updated 07/23/24 @ 03:45 by Michelle Roe) Normal labor (Acute) Sciatica of left side (Acute) Grief (Chronic) due to sudden of her mother Family history of sudden in mother (Acute) (Acute) Major depressive disorder (Chronic) Generalized anxiety disorder (Chronic) Migraine headache with aura (Chronic) Medical History (Updated 07/23/24 @ 03:45 by Michelle Roe) Breech presentation Third trimester bleeding, antepartum uterine contractions Cystic fibrosis carrier, antepartum partner screened negative Low lying placenta nos or without hemorrhage, first trimester resolved on ultrasound 03/13/24 Early stage of Spontaneous Threatened Contraceptive surveillance Surgical History No significant past surgical history Family History (Updated 06/17/24 @ 20:42 by Catherine Porras CNM) Mother , age 56 Asthma Depression Myocardial infarction sudden Hyperlipidemia Father No problems noted. Brother Hypertension Hyperlipidemia Daughter No problems noted. Maternal Grandfather , At 63 Hypertension COPD (chronic obstructive pulmonary disease) Heart disease Myocardial infarction Hyperlipidemia Maternal Grandmother Hypertension Hyperlipidemia Paternal Grandfather Hyperlipidemia Stroke Paternal Grandmother ALS (amyotrophic lateral sclerosis) Social History Smoking/Tobacco Use Status: Never Second Hand Exposure: Yes Smoking risk assessment performed?: Yes Alcohol Intake: current Alcohol Intake frequency: holidays/special occasions only Drug use: Never Substance use type: does not use Caregiver/Support person: No Household members: family and children Housing: house Number of Children: 1 Communication Needs: None Do you need help understanding health information?: Never Pets and animals: Yes Pets and animals: cat(s) Sexually active: Yes Do you think of yourself as: straight/heterosexual Current gender identity: female What is your relationship status?: never How often do you talk on the phone with friends or family?: never How often do you get together with friends or relatives?: twice per week How often do you attend scientologist or scientologist services?: 1-3 times per year Do you belong to any clubs or organized social groups?: no Panel score (0-1 are the most socially isolated patients): 0 What type of physical activity do you participate in: decline to answer Duration: decline to answer Frequency: decline to answer Margarita/Latter-Day: No preference Special margarita needs: No Seatbelt use: always Helmet use: No Drive intox or ride w/intox utility driver: No Do you feel safe at home: Yes Do you feel safe in your relationship?: Yes History History 3 Para 1 Hx # Term Pregnancies 1 Multiple births 0 Hx # Pregnancies 0 Ectopic pregnancies 0 AB induced 0 Hx Number of Living Children 1 AB spontaneous 1 Past Pregnancies Del. Date GA/Weeks # Preg Succ Route Wgt Sex Labor Lgth Anesth esia Location Prov Complic 09/23/16 40 No Yes vaginal 8 lb 7 oz Female 8 hr active labor, pushed x2.[address] [facility] Dr[address] Coy 10/27/23 6 No No Delivery Date: 09/23/16 Last Updated by: Michelle Roe Spont labor, unmedicated, long 2nd stage, epis, nml [place] Meds Allergies and Home Medications Allergies Allergy/AdvReac Type Severity Reaction Status Date / Time pineapple Allergy Severe itchy Verified 07/16/24 09:05 throat Penicillins Allergy hives Verified 07/16/24 09:05 Sulfa (Sulfonamide Allergy hives Verified 07/16/24 09:05 Antibiotics) amoxicillin AdvReac Intermediate welts on Verified 07/16/24 09:05 legs Home Medications ?Medication ?Instructions ?Recorded ?Confirmed ?Type venlafaxine 75 mg capsule,extended 75 mg PO DAILY 10/30/23 07/16/24 History release 24 hr (Effexor XR) vits no.126-ferrous fum 1 tab PO DAILY 01/16/24 07/16/24 History 28 mg iron-folic acid 800 mcg tablet (Classic ) ferrous sulfate 325 mg (65 mg 325 mg PO DAILY #60 tabs 07/08/24 07/16/24 Rx iron) tablet triamcinolone acetonide 0.1 % 1 applic topical BID PRN 07/16/24 07/16/24 History topical cream ondansetron HCl 8 mg tablet 8 mg PO Q8H PRN nausea and 07/22/24 Rx vomiting #10 tabs Exam Physical Exam Vital signs: Pulse BP 127 H 133/85 07/23/24 03:14 07/23/24 03:14 Vital Signs Reviewed: Yes Constitutional Constitutional: no acute distress, average body habitus and cooperative Detailed Labor and Delivery Exam Dilation: 5 Effacement (%): 80 station: -2 Cervix position: mid Consistency: soft Amniotic Membrane Status: Ruptured Rupture Method: Spontaneous Amniotic Fluid: Clear Pooling: Positive Nitrazine: Positive Ferning: Present Contraction Frequency(min): q4-5 Contraction Intensity: Mild Fetus A Heart Rate Baseline: 150 Monitor Accelerations: Present Monitor Decelerations: None Variability: Moderate (6-25 BPM) Categories: Category I Est. Weight: 7 lb 11.459 oz Est. Weight: 3500 gms Date of Membrane Rupture: 07/23/24 Time of Membrane Rupture: 02:00 HEENT Exam HEENT Exam: Normal Neck Exam Neck Exam: Normal Chest/Brest/Axilla Exam Chest Exam: Normal Breast Exam Breast Exam: Not Done Respiratory Exam Respiratory Exam: Normal Cardiovascular Exam Cardiovascular Exam: Normal Abdominal Exam Abdominal Exam: Normal (Gravid, nontender) Rectal Exam Rectal Exam: Normal Exam Exam: Normal Extremities Exam Extremities Exam: Normal Back/Spine/Pelvis Exam Back Exam: Normal Pelvis Adequate: Yes Skin Exam Skin Exam: Normal Neurological Exam Neurological Exam: Normal Psychiatric Exam Psychiatric Exam: Normal Results Results Group Beta Strep: Negative Blood Type: O+ Rubella Status: Immune Varicella Immunity: Immune Risk Assessment Risk for Shoulder Dystocia Historical/Initial OB: POSITIVE FOR: Pre- BMI>30; NEGATIVE FOR: Pelvic Abnormality, Previous Shoulder Dystocia or Previous Macrosomia 36 Weeks: NEGATIVE FOR: Current Gestational DM, EFW>4500gms or Maternal Weight Gain>40lbs Increased Risk?: No Delivery Plan @ 36wks: Risk for Pre-Eclampsia Date Initiated/Initials: not indicated, JK Yes, if one or more: NEGATIVE FOR: Hx Pre-E/Gest HTN, Chronic HTN, Multiple Gestation, Pre-gestational DM, Renal Disease, Systemic Lupus or APA Syndrome Yes, if 2 or more: POSITIVE FOR: BMI>30; NEGATIVE FOR: Nulliparity, Age>= 35 yrs, >10yr btwn pregnancies, ethinicty, Mother/Sister w/ Pre-E or Previous IUGR Risk for Post- Hemorrhage Initial: NEGATIVE FOR: Multiple Gestation, Previous PPH, Known Clotting Deficiency, Grand Multiparity or Anticoagulation 36 Weeks: NEGATIVE FOR: Anemia, hgb<10, Low platelets(thrombocytopenia), Gestational HTN or Pre-E, Polyhydraminios or EFW>4500gms At Risk?: No Counseled re: Active Management: Yes Risks Reviewed Risks Reviewed Upon Admission: Yes
[2024-07-23 03:56] LABS: HCT 35.4 % (36.0-46.0); HGB 11.7 g/dL (11.2-15.7); MCH 28.7 pg (27.0-33.0); MCHC 33.1 % (32.0-36.0); MCV 87 fL (80-95); MPV 12.3 fL (8.0-11.0); Platelet Count 125 10^3/uL (130-400); RBC 4.07 10^6/uL (3.93-5.22); RDW 14.2 % (11.7-14.6); RDW-SD 44.2 fL; WBC 12.16 10^3/uL (4.4-10.8)
[2024-07-23] MEDS: Normal Saline Flush 10 ML SYR (08:20)
[2024-07-23] MEDS: Oxytocin/Normal Saline 30 UNIT/500 ML BAG 167 UNITS IV (09:05)
[2024-07-23] MEDS: Dibucaine 1% 28 GM TUBE TP (10:51)
[2024-07-23] MEDS: Hamamelis Leaf/Glycerin 100 EACH BOX PR (10:52)
[2024-07-23] MEDS: Acetaminophen 325 MG TAB 650 MG PO ×2 (10:52→19:58)
[2024-07-23] MEDS: Ibuprofen 600 MG TAB PO ×2 (10:53→19:59)
--- NOTE | 2024-07-23 11:18 | W.OBDELIVERY ---
Date of service: 07/23/24 Time of Service: 09:30 OB Labor/ Delivery Information Baby A Delivery Delivery Method: Spontaneaous Presentation: Cephalic Cephalic Position: Vertex Breech Position: N/A Cord Description-Baby A: 3 Vessels Amniotic Fluid: Clear Estimated Blood Loss: 400 QBL Delivery Outcome: Liveborn Transferred: Remains with Mother Note: CNM called to pt's room at 0745 as pt had decided she wanted either epidural or intrathecal. Cvx was 7/90%, vtx -3 with large forebag, coping very well but anticipating a desire for pain relief moving into delivery. DRY MAN on unit but involved in another case and will come as soon as possible, pt needed IV initiated and bolus done anyway. SROM of forebag occurred at 0830, category 1 tracing noted and EFM discontinued to allow pt mobility. She tried kneeling on the bed as urges to push increased, she then stood up and leaned forward onto the foot of the bed and remained there for delivery. FHT by olutone prior to in 130's and 2nd stage huddle completed. Controlled delivery of head by CNM with pt standing, vigorous male delivered over intact perineum, pt then assisted onto the bed and placed in her arms, strong family bonding observed. pitocin bolus begun, cord ceased pulsating and was clamped then cut by FOB, cord blood collected, Fischer placenta delivered intact with 3VC. Left labial laceration repaired with 3.0 Vicryl using topical benzocaine aerosol for anesthetic, fundus firm at or below umbilicus, no clots found on vaginal sweep. required a few moments of blowby oxygen while resting on pt's chest, face slightly bruised but pink color maintained. 8/9, weight 3340 gms. Providers Nurse Junior Technical Writer: Michelle Roe Nurse: Fanny Butler Nurse: Nash Carter Labor/Delivery Information Number of Babies in Womb: 1 Steroids Given: None Reason Steroids Not Administered: N/A Group Beta Strep: Negative Antibiotics Administered: No Rubella Status: Immune Blood Type: O+ Varicella Immunity: Immune Maternal Complications: None Shoulder Dystocia: No Stages of Labor Onset of Labor Date: 07/23/24 Onset of Labor Time: 02:00 Complete Dilatation Date: 07/23/24 Complete Dilatation Time: 08:50 Labor - Stage 1 Duration: 6 hours and 50 minutes ROM Baby A: 07/23/24 ROM Baby A: 08:30 ROM Total Time- Baby A: [id number] Delivery Date-Baby A: 07/23/24 Delivery Time-Baby A: 08:55 Labor Stage 2 Duration: 5 minutes Placenta Delivery Date-Baby A: 07/23/24 Placenta Delivery Time-Baby A: 09:02 Labor-Stage 3 Duration: 7 minutes Total Length of Labor-Baby A: 6 hours and 55 minutes Placenta Cultured: No Placenta Status: Delivered Baby A Infant Gender: Male Gestational Status: Early Term (37-38.6 wks) Gestational Age in Weeks/Days: 38 Weeks and 1 Days weight: 7 lb 5.815 oz Weight Comment: 3340 gms Score-1 Minute Interval(Baby A) Heart Rate-1 minute: 100 BPM or Greater Respiratory Effort- 1 minute: Slow Respiration/Weak Cry Muscle Tone-1 minute: Active Movement Reflex Response-1 minute: Prompt Response Color-1 minute: Bluish Hands or Feet Total Score-1 minute: 8 Score-5 Minute Interval(Baby A) Heart Rate- 5 minute: 100 BPM or Greater Respiratory Effort-5 minute: Spontaneous/Strong Cry Muscle Tone-5 minute: Active Movement Reflex Response-5 minute: Prompt Response Color-5 minute: Bluish Hands or Feet Total Score- 5 minute: 9
[2024-07-23] MEDS: Benzocaine 20% 60 ML CAN (12:09)
[2024-07-23] MEDS: Venlafaxine 75 MG CAPCR PO (19:57)
[2024-07-23] MEDS: Docusate Sodium 100 MG CAP PO (19:59)
[2024-07-24] MEDS: Acetaminophen 325 MG TAB 650 MG PO (00:51)
--- NOTE | 2024-07-24 08:38 | OBPPV_ITS ---
Date of service: 07/24/24 Time of Service: 08:38 Assessment and Plan Assessment and plan (1) Term delivered: Status: Acute Assessment and plan: A: nml recovery, ppd#1 happy with experience, well P: Desires discharge today Written instructions reviewed and given to pt F/up at 2 & 6 wks PP; 2 wk check can be telehealth if pt prefers Considering vasectomy for BCM Subjective Subjective Patient comments: No complaints, Tolerating diet and Flatus present Patient's Mood: happy [place] baby status: Doing well, Nursing well, Rooming in and Strong Bonding Observed [place] feeding status: Exclusively breast feeding Exam Physical Exam Vital signs: Temp Pulse Resp BP Pulse Ox 98.2 F 91 H 16 115/75 97 07/23/24 20:00 07/23/24 20:00 07/23/24 20:00 07/23/24 20:00 07/23/24 20:00 Vital Signs Reviewed: Yes Constitutional Constitutional: no acute distress, average body habitus and cooperative HEENT Exam HEENT Exam: Normal Neck Exam Neck Exam: Normal Breast Exam Bilateral: Breast Exam: Normal and Soft Nipple Exam: Normal and Uninjured Respiratory Exam Respiratory Exam: Normal Cardiovascular Exam Cardiovascular Exam: Normal Abdominal Exam Abdomen: Other (soft, nontender) Fundal Exam Fundus: Below Umbilicus and Firm Rectal Exam Rectal Exam: Normal Exam Perineum: Intact Extremities Exam Extremity Exam: Normal Back/Spine/Pelvis Exam Back Exam: Normal Skin Exam Skin Exam: Normal Neurological Exam Neurological Exam: Normal Psychiatric Exam Psychiatric Exam: Normal
--- NOTE | 2024-07-24 08:55 | DSE_ITS ---
Date of service: 07/24/24 Time of Service: 08:55 DS: Diagnosis Discharge Diagnosis (1) Term delivered: Status: Acute Discharge Plan Disposition Patient Disposition: Home Condition: Good Discharge Details Reason For Visit: SROM at Term Admit Date/Time: 07/23/24 03:37 Admit Provider: Michelle Roe Attending Provider: Michelle Roe Primary Care Provider: Jesenia Snyder Hospital Course Hospital Course: Admitted in labor, without complication, nml course Home Meds and New Rx's Prescriptions: No Action venlafaxine [Effexor XR] 75 mg capsule,extended release 24hr 75 mg PO DAILY Classic 28 mg iron- 800 mcg tablet 1 tab PO DAILY triamcinolone acetonide 0.1 % cream 1 applic topical BID PRN Discharge Instructions Additional Instructions: Please keep your 2 and 6 wk appointments with the photography colorist, call for any and all concerns. Stand Alone Forms: BC Instructions, BC Post Vaginal Deliver Activity:: Activity as Tolerated Equipment/Supplies:: No Equipment Needed Diet:: Normal Diet Discharge Orders Discharge Orders: Discharge Order (Routine); Ordered 07/24/24 Ordered By: Michelle Roe OB:DS Summary Summary Vaginal Delivery Method: Spontaneaous Episiotomy Description: None Laceration Description: Other Contraception Discussed Contraception Discussed: Yes Contraceptive Plan: Vasectomy, [place] Infant Gender-Baby A: Male weight: 7 lb 5.815 oz Status at Discharge Functional status at discharge: independent ambulation Overall status at discharge: patient is progressing back to baseline Mental Status: mental status grossly normal Speech and Movement: speech and movement normal and speech clear Mood: congruent mood Affect: normal affect Quality:SDOH Health Related Social Needs: No Data to Display Exam Physical Exam Vital signs: Temp Pulse Resp BP Pulse Ox 98.2 F 91 H 16 115/75 97 07/23/24 20:00 07/23/24 20:00 07/23/24 20:00 07/23/24 20:00 07/23/24 20:00 Constitutional Constitutional: no acute distress, average body habitus and cooperative HEENT Exam HEENT Exam: Normal Neck Exam Neck Exam: Normal Breast Exam Bilateral: Breast Exam: Normal and Soft Respiratory Exam Respiratory Exam: Normal Cardiovascular Exam Cardiovascular Exam: Normal Abdominal Exam Abdomen: Other (soft, nontender) Fundal Exam Fundus: Below Umbilicus and Firm Rectal Exam Rectal Exam: Normal Exam Perineum: Intact Extremities Exam Extremity Exam: Normal Back/Spine/Pelvis Exam Back Exam: Normal Skin Exam Skin Exam: Normal Neurological Exam Neurological Exam: Normal Psychiatric Exam Psychiatric Exam: Normal PFSH All Active Problems (Updated 07/24/24 @ 08:38 by Michelle Roe) Term delivered (Acute) Grief (Chronic) due to sudden of her mother Family history of sudden in mother (Acute) Major depressive disorder (Chronic) Generalized anxiety disorder (Chronic) Migraine headache with aura (Chronic) Medical History (Updated 07/24/24 @ 08:38 by Michelle Roe) Sciatica of left side Normal labor Breech presentation Third trimester bleeding, antepartum uterine contractions Cystic fibrosis carrier, antepartum partner screened negative Low lying placenta nos or without hemorrhage, first trimester resolved on ultrasound 03/13/24 Early stage of Spontaneous Threatened Contraceptive surveillance Surgical History No significant past surgical history Family History (Updated 06/17/24 @ 20:42 by Catherine Porras CNM) Mother , age 56 Asthma Depression Myocardial infarction sudden Hyperlipidemia Father No problems noted. Brother Hypertension Hyperlipidemia Daughter No problems noted. Maternal Grandfather , At 63 Hypertension COPD (chronic obstructive pulmonary disease) Heart disease Myocardial infarction Hyperlipidemia Maternal Grandmother Hypertension Hyperlipidemia Paternal Grandfather Hyperlipidemia Stroke Paternal Grandmother ALS (amyotrophic lateral sclerosis) Social History Smoking/Tobacco Use Status: Never Second Hand Exposure: Yes Smoking risk assessment performed?: Yes Alcohol Intake: former Drug use: Never Substance use type: does not use Caregiver/Support person: No Household members: family and children Housing: apartment Number of Children: 1 Communication Needs: None Do you need help understanding health information?: Never Pets and animals: Yes Pets and animals: cat(s) Sexually active: Yes Do you think of yourself as: straight/heterosexual Current gender identity: female What is your relationship status?: never How often do you talk on the phone with friends or family?: never How often do you get together with friends or relatives?: twice per week How often do you attend mu-ism or rastafari services?: 1-3 times per year Do you belong to any clubs or organized social groups?: no Panel score (0-1 are the most socially isolated patients): 0 What type of physical activity do you participate in: decline to answer Duration: decline to answer Frequency: decline to answer Margarita/Oriental Orthodox: No preference Special margarita needs: No Seatbelt use: always Helmet use: No Drive intox or ride w/intox motor driver: No Do you feel safe at home: Yes Do you feel safe in your relationship?: Yes History History 3 Para 1 Hx # Term Pregnancies 1 Multiple births 0 Hx # Pregnancies 0 Ectopic pregnancies 0 AB induced 0 Hx Number of Living Children 1 AB spontaneous 1 Past Pregnancies Del. Date GA/Weeks # Preg Succ Route Wgt Sex Labor Lgth Anesth esia Location Prov [facility] 09/23/16 40 No Yes vaginal 8 lb 7 oz Female 8 hr active labor, pushed x2.5 hrs [facility] [address] [place] 10/27/23 6 No No Delivery Date: 09/23/16 Last Updated by: Michelle Roe Spont labor, unmedicated, long 2nd stage, epis, nml [place] DS: Data Vitals/I&O Vitals and I&O: Vital Signs Temperature 98.2 F 07/23/24 20:00 Temperature 97.9 F 07/23/24 03:06 Temperature Source Oral 07/23/24 20:00 Pulse 91 H 07/23/24 20:00 Pulse 113 07/23/24 03:06 Pulse Rhythm Regular 07/23/24 19:30 Respiratory Rate 16 07/23/24 20:00 Blood Pressure 115/75 07/23/24 20:00 Blood Pressure 133/85 07/23/24 03:06 Blood Pressure Mean 88 07/23/24 20:00 Pulse Oximetry 97 07/23/24 20:00 Oxygen Delivery Method Room Air 07/23/24 03:32 Oxygen Flow Rate 0 07/23/24 03:32 Pain Level 5 07/23/24 10:52 Intake & Output 07/23/24 07/23/24 07/24/24 11:59 23:59 11:59 Intake Total 500 / 500 Output Total 200 / 650 450 / 650 800 / 800 Balance -200 / -650 -450 / -650 -300 / -300 Weight 203 lb Intake: IV 500 / 500 Output: Urine 200 / 650 450 / 650 800 / 800 Other: Urine Color Dark Leann Yellow Urine Appearance Clear Comment Straight catheter Voiding Methods Toilet
[2024-07-24 09:00] VITALS: BP 118/86; PULSE 82; RESP 16; TEMP 36.8; O2SAT 98
== END 2024-07-24 14:40 | disposition home or self-care (01) | DRG 806 ==
PROVIDERS: Admitting Provider Advanced Practice Midwife; PCP Nurse Practitioner Family; Visit Provider Advanced Practice Midwife
DX: O75.89 Other specified complications of labor and delivery (principal); O99.354 Diseases of the nervous system complicating childbirth; Z37.0 Single live birth; Z3A.38 38 weeks gestation of pregnancy; Z14.1 Cystic fibrosis carrier; F32.9 Major depressive disorder, single episode, unspecified; F41.1 Generalized anxiety disorder; G43.109 Migraine with aura, not intractable, without status migrainosus; O99.344 Other mental disorders complicating childbirth; O70.0 First degree perineal laceration during delivery; M54.32 Sciatica, left side
CPT/HCPCS: 36415; 85027; 86850; 86900; 86901; J0665

== ENCOUNTER 2025-01-14 22:03 | Outpatient (REF) | payer MEDICAID, SELFPAY ==
[2025-01-14 19:07] LABS: ESR 12 mm/hr (0-20)
[2025-01-14 19:24] LABS: C-Reactive Protein < 0.50 mg/dL (<or=0.5)
[2025-01-15 19:09] LABS: Rheumatoid Factor <8.6 IU/mL (<12.0)
[2025-01-18 10:43] LABS: Lyme Ab w Rflx to Lyme Confirm Negative (Negative)
[2025-01-18 14:50] LABS: ANA Interpretation Negative (Negative)
== END 2025-01-14 22:04 | disposition home or self-care (01) ==
LOC: NCHCN 22:03
PROVIDERS: PCP Nurse Practitioner Family; Visit Provider Nurse Practitioner Family
DX: M25.59 Pain in other specified joint (principal)
CPT/HCPCS: 85652; 86038; 86140; 86431; 86618

== ENCOUNTER 2025-01-28 14:55 | Outpatient (REF) | payer MEDICAID, SELFPAY ==
[2025-01-28 19:22] LABS: HCT 39.1 % (36.0-46.0); HGB 13.4 g/dL (11.2-15.7); MCH 29.4 pg (27.0-33.0); MCHC 34.3 % (32.0-36.0); MCV 86 fL (80-95); MPV 11.8 fL (8.0-11.0); Platelet Count 242 10^3/uL (130-400); RBC 4.56 10^6/uL (3.93-5.22); RDW 11.6 % (11.7-14.6); RDW-SD 35.9 fL; WBC 5.99 10^3/uL (4.4-10.8)
[2025-01-28 19:54] LABS: TSH (W/Ref FT4) 0.93 uIU/mL (0.36-3.74)
== END 2025-01-28 14:56 | disposition home or self-care (01) ==
LOC: NCHCN 14:55
PROVIDERS: PCP Nurse Practitioner Family; Visit Provider Nurse Practitioner Family
DX: R53.83 Other fatigue (principal)
CPT/HCPCS: 85027; 84443